=== PATIENT | female | born 1935 | race Asian ===

== ENCOUNTER 2016-12-13 21:00 | Inpatient (IN) | payer MEDICARE, OTHER ==
[~2016-12-13] VITALS: Ht 154.9 cm; Wt 60.4 kg
[~2016-12-13 21:00] MED LIST: ASPI81 PO; ATOR20TA86 GT; BUPR75 GT; BUSP10TA23 GT; DONE10TA GT; ESOM20CA31 PO; FURO20 PO; GINK60TA7 GT; LISI-660 PO; LORA0.5T2 PO; MEMA10TA11 PO; METO5TAB95 PO; PHENL GT; SINE25100 GT; TRAZ150 GT
[2016-12-13 21:57] LABS: BASOPHILS % (AUTO) 0.7 % (0.0-2.0); EOSINOPHILS % (AUTO) 0.4 % (1.0-6.0); HEMATOCRIT 41.4 % (36-46); HEMOGLOBIN 13.5 g/dL (12.0-16.0); LYMPHOCYTES # (AUTO) 2.8 K/uL (1.0-4.8); LYMPHOCYTES % (AUTO) 24.1 % (22.0-44.0); MEAN CORPUSCULAR HEMOGLOBIN 31.7 pg (26.0-34.0); MEAN CORPUSCULAR HGB CONC 32.6 G/dL (31.0-37.0); MEAN CORPUSCULAR VOLUME 97 fL (80-100); MONOCYTES # (AUTO) 0.8 K/uL (0.1-1.0); MONOCYTES % (AUTO) 6.5 % (2.0-9.0); NEUTROPHILS % (AUTO) 68.3 % (40.0-70.0); PLATELET COUNT (AUTO) 264 K/uL (150-450); RED BLOOD CELL COUNT(AUTO) 4.25 MIL/uL (4.00-5.20); WHITE BLOOD COUNT (AUTO) 11.8 K/uL (4.5-11.0)
[2016-12-13 22:03] LABS: APPEARANCE,URINE TURBID (CLEAR); GLUCOSE, URINE (UA) NEGATIVE (NEGATIVE); KETONES,URINE NEGATIVE (NEGATIVE); LEUKOCYTE ESTERASE ,URINE LARGE (NEGATIVE); OCCULT BLOOD,URINE SMALL (NEGATIVE); PROTEIN,URINE SEE CONFIRM (NEGATIVE)
[2016-12-13 22:04] LABS: CALCIUM, TOTAL 8.4 mg/dL (8.8-10.5); CREATININE 1.15 mg/dL (0.60-1.30)
[2016-12-13 22:09] LABS: ALBUMIN 2.9 g/dL (3.4-5.0); BILIRUBIN,TOTAL 0.2 mg/dL (0.1-1.0); TOTAL PROTEIN, SERUM 9.1 g/dL (6.4-8.2)
[2016-12-13 22:14] LABS: SQUAMOUS EPITHELIAL CELL,UR Few /LPF (None Seen); WBC,URINE 51-100 /HPF (0-5)
[2016-12-13 22:18] LABS: LACTIC ACID 1.8 mmol/L (0.4-2.0)
[2016-12-13] MEDS ORDERED: ALBUTEROL SULFATE 2.5 MG/0.5 ML NEB SOLUTION NEB PRN (22:30)
[2016-12-13] MEDS ORDERED: ACETAMINOPHEN 325 MG TABLET PO PRN (22:30)
[2016-12-13] MEDS ORDERED: MAGNESIUM HYDROXIDE SUSPENSION 30 ML UDCUP PO PRN (22:30)
[2016-12-13] MEDS ORDERED: DEXTROSE 50%-WATER 25 GM/50 ML SYRINGE IVP PRN (22:30)
[2016-12-13] MEDS ORDERED: LORazepam 2 MG/ML VIAL IVP PRN (22:30)
[2016-12-13] MEDS ORDERED: SODIUM CHLORIDE 0.9% 1,000 ML IV ONE (22:30)
[2016-12-13] MEDS: PHENYTOIN 100 MG/4 ML SUSPENSION UDCUP PEG SCH (22:56)
[2016-12-13] MEDS: CefTRIAXone 1 GM/DEXTROSE 50 ML IV SCH (22:56)
[2016-12-13] MEDS ORDERED: CefTRIAXone 1 GM/DEXTROSE 50 ML IV SCH (23:00)
[2016-12-13] MEDS: HEPARIN SODIUM,PORCINE 5,000 UNITS/ML VIAL SQ SCH (23:10)
[2016-12-14 06:31] LABS: GLUCOSE,POINT OF CARE 119 MG/DL (70-110)
[2016-12-14 07:28] LABS: BASOPHILS # (AUTO) 0.06 K/uL (0.00-0.20); BASOPHILS % (AUTO) 0.7 % (0.0-2.0); EOSINOPHILS # (AUTO) 0.07 K/uL (0.00-0.70); EOSINOPHILS % (AUTO) 0.75 % (1.0-6.0); HEMATOCRIT 38.2 % (36-46); HEMOGLOBIN 12.8 g/dL (12.0-16.0); LYMPHOCYTES # (AUTO) 3.2 K/uL (1.0-4.8); LYMPHOCYTES % (AUTO) 35.9 % (22.0-44.0); MEAN CORPUSCULAR HEMOGLOBIN 32.7 pg (26.0-34.0); MEAN CORPUSCULAR HGB CONC 33.5 G/dL (31.0-37.0); MEAN CORPUSCULAR VOLUME 98 fL (80-100); MONOCYTES # (AUTO) 0.6 K/uL (0.1-1.0); NEUTROPHILS # (AUTO) 4.9 K/uL (1.8-7.7); NEUTROPHILS % (AUTO) 55.6 % (40.0-70.0); PLATELET COUNT (AUTO) 219 K/uL (150-450); RED BLOOD CELL COUNT(AUTO) 3.91 MIL/uL (4.00-5.20); RED CELL DISTRIBUTION WIDTH 13.5 % (11.5-14.5); WHITE BLOOD COUNT (AUTO) 8.8 K/uL (4.5-11.0)
[2016-12-14 07:37] LABS: CALCIUM, TOTAL 7.9 mg/dL (8.8-10.5); CREATININE 0.94 mg/dL (0.60-1.30)
[2016-12-14] MEDS ORDERED: MAGNESIUM HYDROXIDE SUSPENSION 30 ML UDCUP PEG PRN (07:45)
[2016-12-14] MEDS: HEPARIN SODIUM,PORCINE 5,000 UNITS/ML VIAL SQ SCH ×2 (08:00→18:31)
[2016-12-14] MEDS: ASPIRIN 81 MG CHEWABLE TABLET PEG SCH (10:14)
[2016-12-14] MEDS: ATORVASTATIN CALCIUM 20 MG TABLET PEG SCH (10:14)
[2016-12-14] MEDS: DOCUSATE SODIUM 100 MG CAPSULE PEG SCH ×2 (10:14→22:39)
[2016-12-14] MEDS: PANTOPRAZOLE SODIUM 40 MG/VIAL IVP SCH (10:14)
[2016-12-14 13:16] LABS: GLUCOSE,POINT OF CARE 131 MG/DL (70-110)
[2016-12-14 17:30] VITALS: BP 136/95
[2016-12-14 19:53] VITALS: BP 144/77
[2016-12-14] MEDS: DEXTROSE 5%-0.45% SODIUM CHL 1,000 ML IV SCH (21:47)
[2016-12-14] MEDS: PHENYTOIN 100 MG/4 ML SUSPENSION UDCUP PEG SCH (22:39)
[2016-12-14 23:57] VITALS: BP 138/95
[2016-12-15] MEDS: CefTRIAXone 1 GM/DEXTROSE 50 ML IV SCH ×2 (00:40→23:15)
[2016-12-15] MEDS: HEPARIN SODIUM,PORCINE 5,000 UNITS/ML VIAL SQ SCH ×4 (00:40→23:15)
[2016-12-15 05:11] VITALS: BP 133/86
[2016-12-15 07:32] VITALS: BP 115/73
[2016-12-15] MEDS: DOCUSATE SODIUM 100 MG CAPSULE PEG SCH ×2 (09:48→21:00)
[2016-12-15] MEDS: ATORVASTATIN CALCIUM 20 MG TABLET PEG SCH (09:48)
[2016-12-15] MEDS: ASPIRIN 81 MG CHEWABLE TABLET PEG SCH (09:48)
[2016-12-15] MEDS: PANTOPRAZOLE SODIUM 40 MG/VIAL IVP SCH (09:48)
[2016-12-15] MEDS: ACETAMINOPHEN 325 MG TABLET PEG PRN ×2 (10:08→16:46)
[2016-12-15 11:23] VITALS: BP 103/74
[2016-12-15 12:27] LABS: GLUCOSE,POINT OF CARE 164 MG/DL (70-110)
[2016-12-15 12:27] LABS: GLUCOSE,POINT OF CARE 159 MG/DL (70-110)
[2016-12-15 15:12] VITALS: BP 130/57
[2016-12-15] MEDS: DEXTROSE 5%-0.45% SODIUM CHL 1,000 ML IV SCH (16:50)
[2016-12-15 17:56] LABS: GLUCOSE COMMENT 1 Received Meds; GLUCOSE,POINT OF CARE 205 MG/DL (70-110)
[2016-12-15] MEDS: INSULIN REGULAR, HUMAN 100 UNITS/ML SQ PRN ×2 (18:10→21:48)
[2016-12-15 19:58] VITALS: BP 147/82
[2016-12-15] MEDS: PHENYTOIN 100 MG/4 ML SUSPENSION UDCUP PEG SCH (21:49)
[2016-12-16 00:18] VITALS: BP 144/68
[2016-12-16 05:23] VITALS: BP 155/96
[2016-12-16] MEDS: INSULIN REGULAR, HUMAN 100 UNITS/ML SQ PRN ×3 (06:15→18:14)
[2016-12-16 06:29] LABS: BASOPHILS % (AUTO) 0.4 % (0.0-2.0); EOSINOPHILS % (AUTO) 2.4 % (1.0-6.0); HEMATOCRIT 36.8 % (36-46); HEMOGLOBIN 11.9 g/dL (12.0-16.0); LYMPHOCYTES # (AUTO) 2.7 K/uL (1.0-4.8); LYMPHOCYTES % (AUTO) 31.1 % (22.0-44.0); MEAN CORPUSCULAR HEMOGLOBIN 31.8 pg (26.0-34.0); MEAN CORPUSCULAR HGB CONC 32.4 G/dL (31.0-37.0); MEAN CORPUSCULAR VOLUME 98 fL (80-100); MONOCYTES # (AUTO) 0.6 K/uL (0.1-1.0); MONOCYTES % (AUTO) 6.7 % (2.0-9.0); NEUTROPHILS # (AUTO) 5.1 K/uL (1.8-7.7); NEUTROPHILS % (AUTO) 59.4 % (40.0-70.0); PLATELET COUNT (AUTO) 183 K/uL (150-450); RED BLOOD CELL COUNT(AUTO) 3.74 MIL/uL (4.00-5.20); RED CELL DISTRIBUTION WIDTH 12.7 % (11.5-14.5); WHITE BLOOD COUNT (AUTO) 8.6 K/uL (4.5-11.0)
[2016-12-16 06:53] LABS: ANION GAP 8 mmol/L (8-16); CALCIUM, TOTAL 7.4 mg/dL (8.8-10.5); CARBON DIOXIDE 27 mmol/L (22-29); CHLORIDE 107 mmol/L (98-107); CREATININE 0.75 mg/dL (0.60-1.30); GLOMERULAR FILTR. RATE CALC > 60 mL/min (>60); POTASSIUM 3.6 mmol/L (3.5-5.1); SODIUM SERUM 142 mmol/L (136-145); UREA NITROGEN, BLOOD 35 mg/dL (7-18)
[2016-12-16 07:14] VITALS: BP 159/89
[2016-12-16] MEDS: PANTOPRAZOLE SODIUM 40 MG/VIAL IVP SCH (08:00)
[2016-12-16] MEDS: DOCUSATE SODIUM 100 MG CAPSULE PEG SCH ×2 (08:01→21:00)
[2016-12-16] MEDS: ASPIRIN 81 MG CHEWABLE TABLET PEG SCH (08:01)
[2016-12-16] MEDS: ATORVASTATIN CALCIUM 20 MG TABLET PEG SCH (08:01)
[2016-12-16] MEDS: HEPARIN SODIUM,PORCINE 5,000 UNITS/ML VIAL SQ SCH ×3 (08:01→23:43)
[2016-12-16 11:23] VITALS: BP 162/91
[2016-12-16] MEDS: DEXTROSE 5%-0.45% SODIUM CHL 1,000 ML IV SCH (11:36)
[2016-12-16 12:02] LABS: GLUCOSE COMMENT 1 Received Meds; GLUCOSE,POINT OF CARE 184 MG/DL (70-110)
[2016-12-16] MEDS ORDERED: VANCOMYCIN HCL 1 GM/D5% WATER 200 ML IV ONE (13:00)
[2016-12-16 15:27] VITALS: BP 143/80
[2016-12-16 19:49] VITALS: BP 153/83
[2016-12-16] MEDS: VANCOMYCIN HCL 1 GM/D5% WATER 200 ML IV SCH (20:05)
[2016-12-16] MEDS: PHENYTOIN 100 MG/4 ML SUSPENSION UDCUP PEG SCH (21:11)
[2016-12-17] VITALS (7 sets, daily range): BP systolic 118–168; BP diastolic 76–95
[2016-12-17] MEDS ORDERED: 0.9% SODIUM CHLORIDE 10 ML SYRINGE IVP PRN (03:00)
[2016-12-17] MEDS: INSULIN REGULAR, HUMAN 100 UNITS/ML SQ PRN ×4 (06:50→22:06)
[2016-12-17 06:56] LABS: GLUCOSE COMMENT 1 Received Meds; GLUCOSE,POINT OF CARE 279 MG/DL (70-110)
[2016-12-17 07:26] LABS: ANION GAP 10 mmol/L (8-16); CALCIUM, TOTAL 7.3 mg/dL (8.8-10.5); CARBON DIOXIDE 24 mmol/L (22-29); CHLORIDE 101 mmol/L (98-107); CREATININE 0.76 mg/dL (0.60-1.30); GLOMERULAR FILTR. RATE CALC > 60 mL/min (>60); POTASSIUM 4.7 mmol/L (3.5-5.1); SODIUM SERUM 135 mmol/L (136-145); UREA NITROGEN, BLOOD 30 mg/dL (7-18)
[2016-12-17 07:46] LABS: BASOPHILS % (AUTO) 0.1 % (0.0-2.0); EOSINOPHILS % (AUTO) 0.7 % (1.0-6.0); HEMATOCRIT 34.6 % (36-46); HEMOGLOBIN 11.5 g/dL (12.0-16.0); LYMPHOCYTES # (AUTO) 0.7 K/uL (1.0-4.8); LYMPHOCYTES % (AUTO) 5.9 % (22.0-44.0); MEAN CORPUSCULAR HEMOGLOBIN 31.6 pg (26.0-34.0); MEAN CORPUSCULAR HGB CONC 33.2 G/dL (31.0-37.0); MEAN CORPUSCULAR VOLUME 95 fL (80-100); MONOCYTES # (AUTO) 0.4 K/uL (0.1-1.0); MONOCYTES % (AUTO) 3.8 % (2.0-9.0); NEUTROPHILS # (AUTO) 10.3 K/uL (1.8-7.7); PLATELET COUNT (AUTO) 153 K/uL (150-450); RED BLOOD CELL COUNT(AUTO) 3.64 MIL/uL (4.00-5.20); RED CELL DISTRIBUTION WIDTH 12.5 % (11.5-14.5); WHITE BLOOD COUNT (AUTO) 11.5 K/uL (4.5-11.0)
[2016-12-17 07:49] LABS: NEUTROPHILS % (AUTO) 89.5 % (40.0-70.0)
[2016-12-17] MEDS: ASPIRIN 81 MG CHEWABLE TABLET PEG SCH (09:18)
[2016-12-17] MEDS: VANCOMYCIN HCL 1 GM/D5% WATER 200 ML IV SCH ×2 (09:18→21:56)
[2016-12-17] MEDS: HEPARIN SODIUM,PORCINE 5,000 UNITS/ML VIAL SQ SCH ×2 (09:18→17:12)
[2016-12-17] MEDS: ATORVASTATIN CALCIUM 20 MG TABLET PEG SCH (09:18)
[2016-12-17] MEDS: DEXTROSE 5%-0.45% SODIUM CHL 1,000 ML IV SCH (09:18)
[2016-12-17] MEDS: DOCUSATE SODIUM 100 MG CAPSULE PEG SCH ×3 (09:19→21:56)
[2016-12-17] MEDS: PANTOPRAZOLE SODIUM 40 MG/VIAL IVP SCH (09:20)
[2016-12-17] MEDS: PHENYTOIN 100 MG/4 ML SUSPENSION UDCUP PEG SCH (21:56)
[2016-12-18] MEDS: HEPARIN SODIUM,PORCINE 5,000 UNITS/ML VIAL SQ SCH ×3 (00:20→16:21)
[2016-12-18 04:29] VITALS: BP 152/82
[2016-12-18] MEDS: DEXTROSE 5%-0.45% SODIUM CHL 1,000 ML IV SCH (04:31)
[2016-12-18] MEDS: INSULIN REGULAR, HUMAN 100 UNITS/ML SQ PRN ×2 (06:29→12:34)
[2016-12-18 07:35] VITALS: BP 160/97
[2016-12-18] MEDS: VANCOMYCIN HCL 1 GM/D5% WATER 200 ML IV SCH (08:03)
[2016-12-18] MEDS: PANTOPRAZOLE SODIUM 40 MG/VIAL IVP SCH (08:03)
[2016-12-18] MEDS: DOCUSATE SODIUM 100 MG CAPSULE PEG SCH (08:04)
[2016-12-18] MEDS: ATORVASTATIN CALCIUM 20 MG TABLET PEG SCH (08:04)
[2016-12-18] MEDS: ASPIRIN 81 MG CHEWABLE TABLET PEG SCH (08:04)
[2016-12-18 09:13] LABS: ANION GAP 9 mmol/L (8-16); CALCIUM, TOTAL 7.6 mg/dL (8.8-10.5); CARBON DIOXIDE 23 mmol/L (22-29); CHLORIDE 101 mmol/L (98-107); CREATININE 0.66 mg/dL (0.60-1.30); GLOMERULAR FILTR. RATE CALC > 60 mL/min (>60); SODIUM SERUM 133 mmol/L (136-145); UREA NITROGEN, BLOOD 28 mg/dL (7-18)
[2016-12-18 12:05] VITALS: BP 109/79
[2016-12-18 15:40] VITALS: BP 147/94
[2016-12-18] MEDS ORDERED: NITR50CA PEG (15:51)
[2016-12-18] MEDS ORDERED: NITROFURANTOIN MACROCRYSTAL 50 MG CAPSULE PO SCH (16:00)
[2016-12-18] MEDS ORDERED: PANT40TA25 PEG (16:03)
[2016-12-18] MEDS ORDERED: MOM30 PEG (16:04)
[2016-12-18] MEDS ORDERED: INSREG SQ (16:07)
[2016-12-18] MEDS ORDERED: AUD NEB (16:09)
[2016-12-18] MEDS ORDERED: VANCOMYCIN HCL 750 MG in DEXTROSE 5%-WATER 150 ML IV SCH (20:00)
[2016-12-26 06:54] LABS: GLUCOSE,POINT OF CARE 139 MG/DL (70-110)
[2016-12-26 06:54] LABS: GLUCOSE,POINT OF CARE 174 MG/DL (70-110)
[2016-12-26 06:54] LABS: GLUCOSE COMMENT 1 Received Meds; GLUCOSE,POINT OF CARE 227 MG/DL (70-110)
[2016-12-26 06:54] LABS: GLUCOSE COMMENT 1 Received Meds; GLUCOSE,POINT OF CARE 230 MG/DL (70-110)
[2016-12-26 06:54] LABS: GLUCOSE COMMENT 1 Received Meds; GLUCOSE,POINT OF CARE 153 MG/DL (70-110)
[2016-12-26 06:54] LABS: GLUCOSE COMMENT 1 Received Meds; GLUCOSE,POINT OF CARE 209 MG/DL (70-110)
[2016-12-26 06:57] LABS: GLUCOSE,POINT OF CARE 140 MG/DL (70-110)
[2016-12-26 06:58] LABS: GLUCOSE COMMENT 1 Received Meds; GLUCOSE,POINT OF CARE 217 MG/DL (70-110)
[2016-12-26 06:58] LABS: GLUCOSE COMMENT 1 Received Meds; GLUCOSE,POINT OF CARE 163 MG/DL (70-110)
[2016-12-26 06:58] LABS: GLUCOSE COMMENT 1 Received Meds; GLUCOSE,POINT OF CARE 157 MG/DL (70-110)
[2016-12-26 06:58] LABS: GLUCOSE COMMENT 1 Received Meds; GLUCOSE,POINT OF CARE 207 MG/DL (70-110)
== END 2016-12-18 16:50 | DRG 871 ==
LOC: EMS 21:07 → 5S 12-14 17:10 → EMS 12-14 17:50
PROVIDERS: ADMIT Internal Medicine; ATTEND Internal Medicine
DX: A41.81 Sepsis due to Enterococcus (principal); E43 Unspecified severe protein-calorie malnutrition; N39.0 Urinary tract infection, site not specified; I69.354 Hemiplegia and hemiparesis following cerebral infarction affecting left non-dominant side; F02.80 Dementia in other diseases classified elsewhere, unspecified severity, without behavioral disturbance, psychotic disturbance, mood disturbance, and anxiety; R13.10 Dysphagia, unspecified; G40.909 Epilepsy, unspecified, not intractable, without status epilepticus; L89.159 Pressure ulcer of sacral region, unspecified stage; Z16.24 Resistance to multiple antibiotics; R62.7 Adult failure to thrive; E11.65 Type 2 diabetes mellitus with hyperglycemia; E78.00 Pure hypercholesterolemia, unspecified; E86.0 Dehydration; F01.50 Vascular dementia, unspecified severity, without behavioral disturbance, psychotic disturbance, mood disturbance, and anxiety; G20 Parkinson's disease; G30.9 Alzheimer's disease, unspecified; H54.41 Blindness, right eye, normal vision left eye; I10 Essential (primary) hypertension; Z74.01 Bed confinement status; Z79.82 Long term (current) use of aspirin; Z68.25 Body mass index [BMI] 25.0-25.9, adult
CPT/HCPCS: 82962; 83605; 87040; 87086; 93005; 96361; 96374; 99285; C9113; J0696; J1644; J3370; J7030; J7060

== ENCOUNTER 2017-01-11 13:59 | Inpatient (IN) | payer MEDICARE, OTHER ==
[~2017-01-11] VITALS: Ht 154.9 cm; Wt 64.7 kg
[~2017-01-11 13:59] MED LIST changes: +AUD NEB; -BUPR75 GT; -BUSP10TA23 GT; -DONE10TA GT; -ESOM20CA31 PO; -FURO20 PO; -GINK60TA7 GT; +INSREG SQ; -LISI-660 PO; -LORA0.5T2 PO; -MEMA10TA11 PO; -METO5TAB95 PO; +MOM30 PEG; +NITR50CA PEG; +PANT40TA25 PEG; -SINE25100 GT; -TRAZ150 GT
[2017-01-11] MEDS ORDERED: GINK40TA2 PEG (14:36)
[2017-01-11] MEDS ORDERED: DONE10TA PEG (14:36)
[2017-01-11] MEDS ORDERED: SITA50 PEG (14:36)
[2017-01-11] MEDS ORDERED: LISI-660 PEG (14:36)
[2017-01-11] MEDS ORDERED: MEMA10TA11 PEG (14:36)
[2017-01-11] MEDS ORDERED: BUPR75 PEG (14:36)
[2017-01-11] MEDS ORDERED: TRAZ-144 PEG (14:36)
[2017-01-11] MEDS ORDERED: ESOM20CA31 PEG (14:36)
[2017-01-11] MEDS ORDERED: LORA0.5T2 PEG (14:36)
[2017-01-11] MEDS ORDERED: CARB25TA3 PEG (14:36)
[2017-01-11] MEDS ORDERED: BUSP10TA23 PEG (14:36)
[2017-01-11 15:20] LABS: BASOPHILS % (AUTO) 0.5 % (0.0-2.0); EOSINOPHILS % (AUTO) 0.3 % (1.0-6.0); HEMATOCRIT 39.1 % (36-46); HEMOGLOBIN 12.7 g/dL (12.0-16.0); LYMPHOCYTES # (AUTO) 2.4 K/uL (1.0-4.8); MEAN CORPUSCULAR HEMOGLOBIN 31.8 pg (26.0-34.0); MEAN CORPUSCULAR HGB CONC 32.5 G/dL (31.0-37.0); MEAN CORPUSCULAR VOLUME 98 fL (80-100); MONOCYTES # (AUTO) 0.7 K/uL (0.1-1.0); NEUTROPHILS # (AUTO) 7.1 K/uL (1.8-7.7); NEUTROPHILS % (AUTO) 69.2 % (40.0-70.0); PLATELET COUNT (AUTO) 303 K/uL (150-450); RED BLOOD CELL COUNT(AUTO) 3.98 MIL/uL (4.00-5.20); RED CELL DISTRIBUTION WIDTH 14.1 % (11.5-14.5); WHITE BLOOD COUNT (AUTO) 10.2 K/uL (4.5-11.0)
[2017-01-11 15:29] LABS: PROTHROMBIN TIME 10.4 SEC (9.4-11.6)
[2017-01-11 15:31] LABS: ANION GAP 8 mmol/L (8-16); CALCIUM, TOTAL 8.5 mg/dL (8.8-10.5); CARBON DIOXIDE 30 mmol/L (22-29); CHLORIDE 107 mmol/L (98-107); CREATININE 0.93 mg/dL (0.60-1.30); GLOMERULAR FILTR. RATE CALC 58 mL/min (>60); POTASSIUM 4.4 mmol/L (3.5-5.1); SODIUM SERUM 145 mmol/L (136-145); UREA NITROGEN, BLOOD 51 mg/dL (7-18)
[2017-01-11 15:44] LABS: LACTIC ACID 1.6 mmol/L (0.4-2.0)
[2017-01-11 15:46] LABS: INFLUENZA TYPE B NEGATIVE FOR TYPE B (NEGATIVE)
[2017-01-11 15:56] LABS: ALANINE AMINOTRANSFERASE 30 U/L (12-78); ALBUMIN 2.7 g/dL (3.4-5.0); ASPARTATE AMINOTRANSFERASE 58 U/L (15-37); BILIRUBIN,TOTAL 0.2 mg/dL (0.1-1.0); CREATINE KINASE, TOTAL 87 U/L (26-192); TOTAL PROTEIN, SERUM 8.9 g/dL (6.4-8.2)
[2017-01-11 15:58] LABS: CREATINE KINASE MB < 0.5 ng/mL (0-5)
[2017-01-11] MEDS ORDERED: ACETAMINOPHEN 500 MG TABLET GT ONE (16:00)
[2017-01-11 16:07] LABS: B-TYPE NATRIURETIC PEPTIDE 24 pg/mL (0-100)
[2017-01-11] MEDS ORDERED: SODIUM CHLORIDE 0.9% 500 ML IV ONE (16:30)
[2017-01-11 16:42] LABS: PROCALCITONIN (PCT) 0.12 ng/mL (<0.50)
[2017-01-11 16:45] LABS: APPEARANCE,URINE CLEAR (CLEAR); GLUCOSE, URINE (UA) NEGATIVE (NEGATIVE); KETONES,URINE NEGATIVE (NEGATIVE); LEUKOCYTE ESTERASE ,URINE NEGATIVE (NEGATIVE); OCCULT BLOOD,URINE NEGATIVE (NEGATIVE); PH,URINE 7.5 (5.0-8.0); PROTEIN,URINE POS 1+ (NEGATIVE)
[2017-01-11 16:48] LABS: RBC,URINE None Seen /HPF (0-2); SQUAMOUS EPITHELIAL CELL,UR Few /LPF (None Seen); WBC,URINE 0-2 /HPF (0-5)
[2017-01-11] MEDS ORDERED: CefTRIAXone 1 GM/DEXTROSE 50 ML IV ONE (17:00)
[2017-01-11] MEDS ORDERED: 0.9% SODIUM CHLORIDE 10 ML SYRINGE IVP PRN (18:15)
[2017-01-11] MEDS ORDERED: ONDANSETRON HCL 4 MG/2 ML VIAL IVP PRN (18:15)
[2017-01-11] MEDS ORDERED: ACETAMINOPHEN 325 MG TABLET PO PRN (18:15)
[2017-01-11] MEDS ORDERED: ERYTHROMYCIN 0.5% 3.5 GM TUBE OPHTHALMIC OINTMENT OD SCH (21:00)
[2017-01-11 22:00] VITALS: BP 136/90
[2017-01-11 22:11] VITALS: BP 136/90
[2017-01-12 00:18] VITALS: BP 117/72
[2017-01-12 04:12] VITALS: BP 150/89
[2017-01-12] MEDS ORDERED: DEXTROSE 50%-WATER 25 GM/50 ML SYRINGE IVP PRN (06:45)
[2017-01-12 07:22] LABS: HEMATOCRIT 35.8 % (36-46); HEMOGLOBIN 11.9 g/dL (12.0-16.0); MEAN CORPUSCULAR HEMOGLOBIN 32.6 pg (26.0-34.0); MEAN CORPUSCULAR HGB CONC 33.2 G/dL (31.0-37.0); MEAN CORPUSCULAR VOLUME 98 fL (80-100); RED BLOOD CELL COUNT(AUTO) 3.64 MIL/uL (4.00-5.20); RED CELL DISTRIBUTION WIDTH 14.3 % (11.5-14.5)
[2017-01-12 07:27] LABS: ALANINE AMINOTRANSFERASE 57 U/L (12-78); ALBUMIN 2.5 g/dL (3.4-5.0); ANION GAP 11 mmol/L (8-16); ASPARTATE AMINOTRANSFERASE 47 U/L (15-37); BILIRUBIN,TOTAL 0.4 mg/dL (0.1-1.0); CALCIUM, TOTAL 8.5 mg/dL (8.8-10.5); CARBON DIOXIDE 27 mmol/L (22-29); CHLORIDE 108 mmol/L (98-107); CREATININE 0.77 mg/dL (0.60-1.30); GLOMERULAR FILTR. RATE CALC > 60 mL/min (>60); POTASSIUM 4.5 mmol/L (3.5-5.1); SODIUM SERUM 146 mmol/L (136-145); TOTAL PROTEIN, SERUM 8.3 g/dL (6.4-8.2); UREA NITROGEN, BLOOD 50 mg/dL (7-18)
[2017-01-12 07:32] VITALS: BP 138/77
[2017-01-12 08:08] LABS: PLATELET COUNT (AUTO) 272 K/uL (150-450)
[2017-01-12 08:10] LABS: BAND NEUTROPHILS % (MANUAL) 8 % (1-5); BASOPHILS % (MANUAL) 1 % (0-2); LYMPHOCYTES % (MANUAL) 17 % (22-44); TOTAL CELLS COUNTED 100
[2017-01-12] MEDS: LISINOPRIL 5 MG TABLET PEG SCH (08:42)
[2017-01-12] MEDS: MEMANTINE HCL 10 MG TABLET PEG SCH ×2 (08:43→21:03)
[2017-01-12] MEDS: BuPROPion HCL 75 MG TABLET PEG SCH (08:43)
[2017-01-12] MEDS: DONEPEZIL HCL 10 MG TABLET PEG SCH (08:43)
[2017-01-12] MEDS: ASPIRIN 81 MG CHEWABLE TABLET PEG SCH (08:43)
[2017-01-12] MEDS: BusPIRone HCL 10 MG TABLET PEG SCH ×2 (08:43→21:03)
[2017-01-12] MEDS: ATORVASTATIN CALCIUM 20 MG TABLET PEG SCH (08:43)
[2017-01-12 11:31] VITALS: BP 150/73
[2017-01-12] MEDS ORDERED: PHENL GT (13:37)
[2017-01-12] MEDS ORDERED: SODIUM CHLORIDE 0.9% 500 ML IV ONE (16:14)
[2017-01-12] MEDS: CefTRIAXone 1 GM/DEXTROSE 50 ML IV SCH (16:46)
[2017-01-12] MEDS ORDERED: SODIUM CHLORIDE 0.9% 100 ML ONE (17:52)
[2017-01-12] MEDS ORDERED: BARIUM SULFATE 0.1% SUSPENSION 450 ML BOTTLE ONE (17:52)
[2017-01-12] MEDS ORDERED: IOVERSOL 350 MG/ML 100 ML VIAL ONE (17:52)
[2017-01-12 19:29] VITALS: BP 124/71
[2017-01-12] MEDS ORDERED: PHENYTOIN 100 MG/4 ML SUSPENSION UDCUP PO SCH (21:00)
[2017-01-12] MEDS: TraZODone HCL 50 MG TABLET PEG SCH (21:03)
[2017-01-12] MEDS: SODIUM CHLORIDE 0.9% 1,000 ML IV SCH (21:03)
[2017-01-12] MEDS: LORazepam 0.5 MG TABLET PEG SCH (21:03)
[2017-01-12 23:52] VITALS: BP 98/59
[2017-01-13 05:12] VITALS: BP 129/71
[2017-01-13] MEDS: INSULIN ASPART 100 UNITS/ML SQ PRN ×2 (05:42→18:09)
[2017-01-13] MEDS ORDERED: 0.9% SODIUM CHLORIDE 10 ML SYRINGE IVP PRN (06:15)
[2017-01-13 06:32] LABS: BASOPHILS % (AUTO) 0.3 % (0.0-2.0); EOSINOPHILS % (AUTO) 3.1 % (1.0-6.0); HEMATOCRIT 32.2 % (36-46); HEMOGLOBIN 10.9 g/dL (12.0-16.0); LYMPHOCYTES # (AUTO) 1.7 K/uL (1.0-4.8); LYMPHOCYTES % (AUTO) 21.4 % (22.0-44.0); MEAN CORPUSCULAR HEMOGLOBIN 32.9 pg (26.0-34.0); MEAN CORPUSCULAR HGB CONC 33.7 G/dL (31.0-37.0); MEAN CORPUSCULAR VOLUME 98 fL (80-100); MONOCYTES # (AUTO) 0.5 K/uL (0.1-1.0); MONOCYTES % (AUTO) 5.7 % (2.0-9.0); NEUTROPHILS # (AUTO) 5.6 K/uL (1.8-7.7); NEUTROPHILS % (AUTO) 69.5 % (40.0-70.0); PLATELET COUNT (AUTO) 250 K/uL (150-450); RED CELL DISTRIBUTION WIDTH 13.9 % (11.5-14.5)
[2017-01-13 06:51] LABS: ANION GAP 7 mmol/L (8-16); CALCIUM, TOTAL 8.1 mg/dL (8.8-10.5); CARBON DIOXIDE 26 mmol/L (22-29); CHLORIDE 108 mmol/L (98-107); CREATININE 0.77 mg/dL (0.60-1.30); GLOMERULAR FILTR. RATE CALC > 60 mL/min (>60); POTASSIUM 3.9 mmol/L (3.5-5.1); SODIUM SERUM 141 mmol/L (136-145); UREA NITROGEN, BLOOD 41 mg/dL (7-18)
[2017-01-13 07:15] VITALS: BP 125/74
[2017-01-13] MEDS: BusPIRone HCL 10 MG TABLET PEG SCH ×2 (09:35→21:00)
[2017-01-13] MEDS: ATORVASTATIN CALCIUM 20 MG TABLET PEG SCH (09:35)
[2017-01-13] MEDS: MEMANTINE HCL 10 MG TABLET PEG SCH ×2 (09:36→21:00)
[2017-01-13] MEDS: LISINOPRIL 5 MG TABLET PEG SCH (09:36)
[2017-01-13] MEDS: BuPROPion HCL 75 MG TABLET PEG SCH (09:37)
[2017-01-13] MEDS: MULTIVITAMINS WITH MINERALS, THERAPEUTIC 15 ML UDCUP PEG SCH (09:37)
[2017-01-13] MEDS: SODIUM CHLORIDE 0.9% 1,000 ML IV SCH (09:38)
[2017-01-13] MEDS: DONEPEZIL HCL 10 MG TABLET PEG SCH (09:39)
[2017-01-13] MEDS: ASPIRIN 81 MG CHEWABLE TABLET PEG SCH (09:39)
[2017-01-13 10:59] VITALS: BP 120/63
[2017-01-13] MEDS ORDERED: BUPR150SR PO (11:34)
[2017-01-13] MEDS ORDERED: CARB-101 PO (11:34)
[2017-01-13] MEDS ORDERED: VANCOMYCIN HCL 1 GM/D5% WATER 200 ML IV ONE (12:00)
[2017-01-13 15:31] VITALS: BP 122/62
[2017-01-13] MEDS: CefTRIAXone 1 GM/DEXTROSE 50 ML IV SCH (17:40)
[2017-01-13 19:37] VITALS: BP 135/66
[2017-01-13] MEDS: TraZODone HCL 50 MG TABLET PEG SCH (21:00)
[2017-01-13] MEDS: LORazepam 0.5 MG TABLET PEG SCH (21:00)
[2017-01-13] MEDS: PHENYTOIN 100 MG/4 ML SUSPENSION UDCUP PEG SCH (21:55)
[2017-01-14] VITALS (7 sets, daily range): BP systolic 105–143; BP diastolic 59–83
[2017-01-14 06:52] LABS: BASOPHILS % (AUTO) 0.3 % (0.0-2.0); EOSINOPHILS % (AUTO) 2.6 % (1.0-6.0); HEMATOCRIT 31.8 % (36-46); HEMOGLOBIN 10.6 g/dL (12.0-16.0); LYMPHOCYTES # (AUTO) 1.6 K/uL (1.0-4.8); LYMPHOCYTES % (AUTO) 17.1 % (22.0-44.0); MEAN CORPUSCULAR HEMOGLOBIN 32.5 pg (26.0-34.0); MEAN CORPUSCULAR HGB CONC 33.3 G/dL (31.0-37.0); MEAN CORPUSCULAR VOLUME 98 fL (80-100); MONOCYTES # (AUTO) 0.5 K/uL (0.1-1.0); MONOCYTES % (AUTO) 5.2 % (2.0-9.0); NEUTROPHILS % (AUTO) 74.8 % (40.0-70.0); PLATELET COUNT (AUTO) 225 K/uL (150-450); RED BLOOD CELL COUNT(AUTO) 3.26 MIL/uL (4.00-5.20); RED CELL DISTRIBUTION WIDTH 13.5 % (11.5-14.5); WHITE BLOOD COUNT (AUTO) 9.3 K/uL (4.5-11.0)
[2017-01-14] MEDS: INSULIN ASPART 100 UNITS/ML SQ PRN ×3 (06:54→17:47)
[2017-01-14 07:07] LABS: ANION GAP 8 mmol/L (8-16); CALCIUM, TOTAL 8.1 mg/dL (8.8-10.5); CARBON DIOXIDE 24 mmol/L (22-29); CHLORIDE 104 mmol/L (98-107); GLOMERULAR FILTR. RATE CALC > 60 mL/min (>60); POTASSIUM 3.9 mmol/L (3.5-5.1); SODIUM SERUM 136 mmol/L (136-145); UREA NITROGEN, BLOOD 30 mg/dL (7-18)
[2017-01-14] MEDS: ASPIRIN 81 MG CHEWABLE TABLET PEG SCH (09:27)
[2017-01-14] MEDS: DONEPEZIL HCL 10 MG TABLET PEG SCH (09:27)
[2017-01-14] MEDS: VANCOMYCIN HCL 500 MG in DEXTROSE 5%-WATER 100 ML IV SCH ×2 (09:27→20:07)
[2017-01-14] MEDS: LISINOPRIL 5 MG TABLET PEG SCH (09:28)
[2017-01-14] MEDS: MULTIVITAMINS WITH MINERALS, THERAPEUTIC 15 ML UDCUP PEG SCH (09:28)
[2017-01-14] MEDS: BusPIRone HCL 10 MG TABLET PEG SCH ×2 (09:28→20:08)
[2017-01-14] MEDS: BuPROPion HCL 75 MG TABLET PEG SCH (09:28)
[2017-01-14] MEDS: ATORVASTATIN CALCIUM 20 MG TABLET PEG SCH (09:28)
[2017-01-14] MEDS: MEMANTINE HCL 10 MG TABLET PEG SCH ×2 (09:28→20:08)
[2017-01-14] MEDS ORDERED: 0.9% SODIUM CHLORIDE 5 ML NEB SOLUTION NEB ONE (15:26)
[2017-01-14] MEDS ORDERED: SODIUM CHLORIDE 0.9% 250 ML IV ONE (16:44)
[2017-01-14] MEDS: MetroNIDAZOLE 500 MG/NACL 100 ML IV SCH ×2 (16:50→22:49)
[2017-01-14] MEDS: CefTRIAXone 1 GM/DEXTROSE 50 ML IV SCH (17:48)
[2017-01-14] MEDS: LORazepam 0.5 MG TABLET PEG SCH (20:08)
[2017-01-14] MEDS: TraZODone HCL 50 MG TABLET PEG SCH (20:08)
[2017-01-14] MEDS: PHENYTOIN 100 MG/4 ML SUSPENSION UDCUP PEG SCH (20:08)
[2017-01-15 04:05] VITALS: BP 105/61
[2017-01-15] MEDS: MetroNIDAZOLE 500 MG/NACL 100 ML IV SCH ×2 (06:30→15:20)
[2017-01-15 07:38] VITALS: BP 124/76
[2017-01-15 07:51] LABS: ANION GAP 10 mmol/L (8-16); CALCIUM, TOTAL 8.1 mg/dL (8.8-10.5); CARBON DIOXIDE 23 mmol/L (22-29); CHLORIDE 102 mmol/L (98-107); CREATININE 0.59 mg/dL (0.60-1.30); GLOMERULAR FILTR. RATE CALC > 60 mL/min (>60); POTASSIUM 5.2 mmol/L (3.5-5.1); SODIUM SERUM 135 mmol/L (136-145); UREA NITROGEN, BLOOD 23 mg/dL (7-18)
[2017-01-15] MEDS: VANCOMYCIN HCL 500 MG in DEXTROSE 5%-WATER 100 ML IV SCH ×2 (08:53→21:16)
[2017-01-15] MEDS: DONEPEZIL HCL 10 MG TABLET PEG SCH (08:54)
[2017-01-15] MEDS: BuPROPion HCL 75 MG TABLET PEG SCH (08:55)
[2017-01-15] MEDS: MEMANTINE HCL 10 MG TABLET PEG SCH ×2 (08:55→21:02)
[2017-01-15] MEDS: ATORVASTATIN CALCIUM 20 MG TABLET PEG SCH (08:55)
[2017-01-15] MEDS: ASPIRIN 81 MG CHEWABLE TABLET PEG SCH (08:56)
[2017-01-15] MEDS: LISINOPRIL 5 MG TABLET PEG SCH (08:56)
[2017-01-15] MEDS: BusPIRone HCL 10 MG TABLET PEG SCH ×2 (08:56→21:03)
[2017-01-15] MEDS: MULTIVITAMINS WITH MINERALS, THERAPEUTIC 15 ML UDCUP PEG SCH (08:56)
[2017-01-15 09:08] LABS: BASOPHILS % (AUTO) 0.3 % (0.0-2.0); EOSINOPHILS % (AUTO) 2.3 % (1.0-6.0); HEMATOCRIT 31.1 % (36-46); HEMOGLOBIN 10.3 g/dL (12.0-16.0); LYMPHOCYTES # (AUTO) 1.2 K/uL (1.0-4.8); LYMPHOCYTES % (AUTO) 12.6 % (22.0-44.0); MEAN CORPUSCULAR HEMOGLOBIN 31.8 pg (26.0-34.0); MEAN CORPUSCULAR HGB CONC 33.2 G/dL (31.0-37.0); MEAN CORPUSCULAR VOLUME 96 fL (80-100); MONOCYTES # (AUTO) 0.4 K/uL (0.1-1.0); MONOCYTES % (AUTO) 3.9 % (2.0-9.0); NEUTROPHILS # (AUTO) 7.5 K/uL (1.8-7.7); NEUTROPHILS % (AUTO) 80.9 % (40.0-70.0); RED BLOOD CELL COUNT(AUTO) 3.25 MIL/uL (4.00-5.20); RED CELL DISTRIBUTION WIDTH 12.9 % (11.5-14.5); WHITE BLOOD COUNT (AUTO) 9.3 K/uL (4.5-11.0)
[2017-01-15 10:15] LABS: PLATELET COUNT (AUTO) 225 K/uL (150-450)
[2017-01-15 10:45] VITALS: BP 114/43
[2017-01-15] MEDS: INSULIN ASPART 100 UNITS/ML SQ PRN (11:54)
[2017-01-15 15:00] VITALS: BP 101/53
[2017-01-15] MEDS: CefTRIAXone 1 GM/DEXTROSE 50 ML IV SCH (17:20)
[2017-01-15 20:12] VITALS: BP 127/64
[2017-01-15] MEDS: LORazepam 0.5 MG TABLET PEG SCH (21:03)
[2017-01-15] MEDS: TraZODone HCL 50 MG TABLET PEG SCH (21:03)
[2017-01-15] MEDS: PHENYTOIN 100 MG/4 ML SUSPENSION UDCUP PEG SCH (21:03)
[2017-01-16] MEDS: MetroNIDAZOLE 500 MG/NACL 100 ML IV SCH ×3 (00:25→14:12)
[2017-01-16 00:32] VITALS: BP 116/87
[2017-01-16 04:32] VITALS: BP 146/74
[2017-01-16 06:53] LABS: ANION GAP 12 mmol/L (8-16); CALCIUM, TOTAL 8.2 mg/dL (8.8-10.5); CARBON DIOXIDE 22 mmol/L (22-29); CHLORIDE 103 mmol/L (98-107); CREATININE 0.56 mg/dL (0.60-1.30); GLOMERULAR FILTR. RATE CALC > 60 mL/min (>60); POTASSIUM 4.1 mmol/L (3.5-5.1); SODIUM SERUM 137 mmol/L (136-145); UREA NITROGEN, BLOOD 19 mg/dL (7-18)
[2017-01-16] MEDS: VANCOMYCIN HCL 500 MG in DEXTROSE 5%-WATER 100 ML IV SCH (07:53)
[2017-01-16 08:13] VITALS: BP 117/58
[2017-01-16] MEDS: LISINOPRIL 5 MG TABLET PEG SCH (08:38)
[2017-01-16] MEDS: ASPIRIN 81 MG CHEWABLE TABLET PEG SCH (08:38)
[2017-01-16] MEDS: BuPROPion HCL 75 MG TABLET PEG SCH (08:38)
[2017-01-16] MEDS: MEMANTINE HCL 10 MG TABLET PEG SCH ×2 (08:38→21:08)
[2017-01-16] MEDS: ATORVASTATIN CALCIUM 20 MG TABLET PEG SCH (08:38)
[2017-01-16] MEDS: BusPIRone HCL 10 MG TABLET PEG SCH ×2 (08:38→21:08)
[2017-01-16] MEDS: DONEPEZIL HCL 10 MG TABLET PEG SCH (08:38)
[2017-01-16] MEDS: MULTIVITAMINS WITH MINERALS, THERAPEUTIC 15 ML UDCUP PEG SCH (08:39)
[2017-01-16 11:30] VITALS: BP 120/81
[2017-01-16] MEDS: INSULIN ASPART 100 UNITS/ML SQ PRN (12:07)
[2017-01-16] MEDS ORDERED: ASPI-1061 PEG (15:01)
[2017-01-16] MEDS ORDERED: METR500 PEG (15:04)
[2017-01-16] MEDS: CefTRIAXone 1 GM/DEXTROSE 50 ML IV SCH (16:01)
[2017-01-16 16:21] VITALS: BP 112/60
[2017-01-16 19:38] VITALS: BP 115/67
[2017-01-16] MEDS: LORazepam 0.5 MG TABLET PEG SCH (21:07)
[2017-01-16] MEDS: TraZODone HCL 50 MG TABLET PEG SCH (21:08)
[2017-01-16] MEDS: PHENYTOIN 100 MG/4 ML SUSPENSION UDCUP PEG SCH (21:08)
[2017-01-17 06:43] LABS: GLUCOSE,POINT OF CARE 163 MG/DL (70-110)
[2017-01-17 06:43] LABS: GLUCOSE,POINT OF CARE 149 MG/DL (70-110)
[2017-01-17 06:43] LABS: GLUCOSE COMMENT 1 Received Meds; GLUCOSE,POINT OF CARE 156 MG/DL (70-110)
[2017-01-17 06:43] LABS: GLUCOSE,POINT OF CARE 128 MG/DL (70-110)
[2017-01-17 06:43] LABS: GLUCOSE,POINT OF CARE 125 MG/DL (70-110)
[2017-01-17 06:47] LABS: GLUCOSE,POINT OF CARE 174 MG/DL (70-110)
[2017-01-17 06:48] LABS: GLUCOSE,POINT OF CARE 174 MG/DL (70-110)
[2017-01-17 06:48] LABS: GLUCOSE,POINT OF CARE 121 MG/DL (70-110)
[2017-01-17 06:48] LABS: GLUCOSE COMMENT 1 Received Meds; GLUCOSE,POINT OF CARE 181 MG/DL (70-110)
[2017-01-17 06:52] LABS: GLUCOSE,POINT OF CARE 139 MG/DL (70-110)
[2017-01-17 06:52] LABS: GLUCOSE,POINT OF CARE 105 MG/DL (70-110)
[2017-01-17 06:52] LABS: GLUCOSE COMMENT 1 Received Meds; GLUCOSE,POINT OF CARE 166 MG/DL (70-110)
[2017-01-17 06:52] LABS: GLUCOSE,POINT OF CARE 129 MG/DL (70-110)
[2017-01-17 07:12] LABS: GLUCOSE,POINT OF CARE 87 MG/DL (70-110)
== END 2017-01-16 22:00 | DRG 871 ==
LOC: EMS 14:08 → 5S 20:59
PROVIDERS: ADMIT Internal Medicine; ATTEND Internal Medicine
DX: A41.4 Sepsis due to anaerobes (principal); E43 Unspecified severe protein-calorie malnutrition; J18.9 Pneumonia, unspecified organism; I69.354 Hemiplegia and hemiparesis following cerebral infarction affecting left non-dominant side; A04.7 Enterocolitis due to Clostridium difficile; I11.0 Hypertensive heart disease with heart failure; E11.9 Type 2 diabetes mellitus without complications; E86.0 Dehydration; R13.10 Dysphagia, unspecified; R62.7 Adult failure to thrive; G40.909 Epilepsy, unspecified, not intractable, without status epilepticus; R00.0 Tachycardia, unspecified; E78.00 Pure hypercholesterolemia, unspecified; F02.80 Dementia in other diseases classified elsewhere, unspecified severity, without behavioral disturbance, psychotic disturbance, mood disturbance, and anxiety; G30.9 Alzheimer's disease, unspecified; F32.9 Major depressive disorder, single episode, unspecified; I50.9 Heart failure, unspecified; H54.41 Blindness, right eye, normal vision left eye; F41.9 Anxiety disorder, unspecified; Z79.4 Long term (current) use of insulin; Z68.27 Body mass index [BMI] 27.0-27.9, adult; Z87.440 Personal history of urinary (tract) infections; Z93.1 Gastrostomy status; Z74.01 Bed confinement status; Z79.82 Long term (current) use of aspirin; Z79.899 Other long term (current) drug therapy
CPT/HCPCS: 71260; 72193; 74160; 82962; 83605; 84145; 87040; 87070; 87081; 87205; 87324; 87449; 87804; 93005; 94640; 96361; 96365; 99285; J0696; J3370; J3490; J7030; J7040; J7050; J7060

== ENCOUNTER → 2017-01-23 | Outpatient (CLI) | payer MEDICARE, OTHER ==
[~2017-01-23] MED LIST changes: +ASPI-1061 PEG; -AUD NEB; +BUPR150SR PO; +BUSP10TA23 PEG; +CARB25TA3 GT; +DONE10TA GT; +ESOM20CA31 PEG; +GADOBUTROL 1 MMOL/ML 10 ML VIAL IVP ONE; +GINGKO BILOBA GT; +GINK120T4 GT; +LISI-660 PEG; +LORA0.5T2 PEG; +MEMA10TA11 PEG; +METR500 PEG; -MOM30 PEG; -NITR50CA PEG; -PANT40TA25 PEG; +SITA50 PEG; +TRAZ-144 PEG
== END | disposition home or self-care (01) ==
LOC: RADPV 09:27
PROVIDERS: ATTEND Internal Medicine Geriatric Medicine
DX: E04.2 Nontoxic multinodular goiter (principal)
CPT/HCPCS: 72197; 74183; 76536; A9585

== ENCOUNTER 2017-02-25 19:29 | Inpatient (IN) | payer MEDICARE, OTHER ==
[~2017-02-25] VITALS: Ht 149.9 cm; Wt 58.6 kg
[~2017-02-25 19:29] MED LIST changes: -CARB25TA3 GT; -DONE10TA GT; -GADOBUTROL 1 MMOL/ML 10 ML VIAL IVP ONE; -GINGKO BILOBA GT; -GINK120T4 GT
[2017-02-25] MEDS ORDERED: ATOR20TA86 GT (20:01)
[2017-02-25] MEDS ORDERED: DONE10TA GT (20:01)
[2017-02-25] MEDS ORDERED: CARB25TA3 GT (20:01)
[2017-02-25] MEDS ORDERED: GINGKO BILOBA GT (20:01)
[2017-02-25] MEDS ORDERED: ACETAMINOPHEN 1000 MG/ISO-OSM 100 ML IV ONE (20:15)
[2017-02-25 20:32] LABS: BASOPHILS % (AUTO) 0.4 % (0.0-2.0); EOSINOPHILS % (AUTO) 3.3 % (1.0-6.0); HEMATOCRIT 50.5 % (36-46); HEMOGLOBIN 16.5 g/dL (12.0-16.0); LYMPHOCYTES % (AUTO) 20.4 % (22.0-44.0); MEAN CORPUSCULAR HEMOGLOBIN 32.7 pg (26.0-34.0); MEAN CORPUSCULAR HGB CONC 32.7 G/dL (31.0-37.0); MEAN CORPUSCULAR VOLUME 100 fL (80-100); MONOCYTES # (AUTO) 0.3 K/uL (0.1-1.0); MONOCYTES % (AUTO) 5.4 % (2.0-9.0); NEUTROPHILS # (AUTO) 3.5 K/uL (1.8-7.7); NEUTROPHILS % (AUTO) 70.5 % (40.0-70.0); PLATELET COUNT (AUTO) 132 K/uL (150-450); RED BLOOD CELL COUNT(AUTO) 5.05 MIL/uL (4.00-5.20); RED CELL DISTRIBUTION WIDTH 13.1 % (11.5-14.5)
[2017-02-25 20:40] LABS: ANION GAP 9 mmol/L (8-16); CALCIUM, TOTAL 8.7 mg/dL (8.8-10.5); CARBON DIOXIDE 26 mmol/L (22-29); CHLORIDE 102 mmol/L (98-107); CREATININE 0.92 mg/dL (0.60-1.30); GLOMERULAR FILTR. RATE CALC 59 mL/min (>60); POTASSIUM 4.5 mmol/L (3.5-5.1); SODIUM SERUM 137 mmol/L (136-145); UREA NITROGEN, BLOOD 39 mg/dL (7-18)
[2017-02-25 20:45] LABS: ALANINE AMINOTRANSFERASE 37 U/L (12-78); ALBUMIN 2.7 g/dL (3.4-5.0); ASPARTATE AMINOTRANSFERASE 28 U/L (15-37); BILIRUBIN,TOTAL 0.3 mg/dL (0.1-1.0); TOTAL PROTEIN, SERUM 8.2 g/dL (6.4-8.2)
[2017-02-25 20:52] LABS: B-TYPE NATRIURETIC PEPTIDE 23 pg/mL (0-100)
[2017-02-25 21:06] LABS: LACTIC ACID 2.1 mmol/L (0.4-2.0)
[2017-02-25 21:07] LABS: ADD UA MICROSCOPIC NO; APPEARANCE,URINE CLEAR (CLEAR); GLUCOSE, URINE (UA) NEGATIVE (NEGATIVE); KETONES,URINE NEGATIVE (NEGATIVE); LEUKOCYTE ESTERASE ,URINE NEGATIVE (NEGATIVE); OCCULT BLOOD,URINE NEGATIVE (NEGATIVE); PH,URINE 7.5 (5.0-8.0); PROTEIN,URINE TRACE (NEGATIVE)
[2017-02-25] MEDS ORDERED: 0.9% SODIUM CHLORIDE 10 ML SYRINGE IVP PRN (21:15)
[2017-02-25] MEDS ORDERED: AZITHROMYCIN 500 MG/NS 250 ML IV ONE (21:15)
[2017-02-25] MEDS ORDERED: CefTRIAXone 1 GM/DEXTROSE 50 ML IV ONE (21:15)
[2017-02-25] MEDS ORDERED: ACETAMINOPHEN 325 MG TABLET PO PRN (21:15)
[2017-02-25 22:24] LABS: REFLEX LACTIC ACID? YES YES
[2017-02-26] VITALS (7 sets, daily range): BP systolic 119–157; BP diastolic 62–94
[2017-02-26] MEDS ORDERED: LORazepam 0.5 MG TABLET PEG PRN (00:45)
[2017-02-26] MEDS ORDERED: IPRATROPIUM BROMIDE 0.5 MG/2.5 ML NEB SOLUTION NEB PRN (00:45)
[2017-02-26] MEDS ORDERED: ACETAMINOPHEN 650 MG/20.3 ML SOLUTION UDCUP GT PRN (00:45)
[2017-02-26] MEDS ORDERED: ONDANSETRON HCL 4 MG/2 ML VIAL IVP PRN (00:45)
[2017-02-26] MEDS ORDERED: MAGNESIUM HYDROXIDE SUSPENSION 30 ML UDCUP GT PRN (00:45)
[2017-02-26] MEDS ORDERED: ALBUTEROL SULFATE 2.5 MG/0.5 ML NEB SOLUTION NEB PRN (00:45)
[2017-02-26] MEDS ORDERED: BISACODYL 10 MG RECTAL RECTAL SUPPOSITORY PR PRN (00:45)
[2017-02-26] MEDS ORDERED: ZOLPIDEM TARTRATE 5 MG TABLET GT PRN (00:45)
[2017-02-26] MEDS ORDERED: SODIUM CHLORIDE 0.9% 250 ML IV ONE (01:08)
[2017-02-26] MEDS: PIPERACILLIN/TAZO 3.375 GM/D5W 50 ML IV SCH ×4 (01:54→17:43)
[2017-02-26 05:31] LABS: BASOPHILS % (AUTO) 0.3 % (0.0-2.0); EOSINOPHILS % (AUTO) 3.4 % (1.0-6.0); HEMATOCRIT 31.9 % (36-46); HEMOGLOBIN 10.5 g/dL (12.0-16.0); LYMPHOCYTES # (AUTO) 1.9 K/uL (1.0-4.8); LYMPHOCYTES % (AUTO) 19.7 % (22.0-44.0); MEAN CORPUSCULAR HEMOGLOBIN 33.1 pg (26.0-34.0); MEAN CORPUSCULAR HGB CONC 33.1 G/dL (31.0-37.0); MEAN CORPUSCULAR VOLUME 100 fL (80-100); MONOCYTES # (AUTO) 0.6 K/uL (0.1-1.0); NEUTROPHILS # (AUTO) 6.8 K/uL (1.8-7.7); NEUTROPHILS % (AUTO) 70.6 % (40.0-70.0); PLATELET COUNT (AUTO) 208 K/uL (150-450); RED BLOOD CELL COUNT(AUTO) 3.18 MIL/uL (4.00-5.20); RED CELL DISTRIBUTION WIDTH 13.2 % (11.5-14.5); WHITE BLOOD COUNT (AUTO) 9.7 K/uL (4.5-11.0)
[2017-02-26 05:52] LABS: GLUCOSE COMMENT 1 Received Meds; GLUCOSE,POINT OF CARE 97 MG/DL (70-110)
[2017-02-26 06:17] LABS: GLUCOSE COMMENT 1 Received Meds; GLUCOSE,POINT OF CARE 98 MG/DL (70-110)
[2017-02-26 06:22] LABS: ANION GAP 7 mmol/L (8-16); CALCIUM, TOTAL 8.2 mg/dL (8.8-10.5); CARBON DIOXIDE 27 mmol/L (22-29); CHLORIDE 103 mmol/L (98-107); CHOL/HDL RATIO 5.8 (3.9-5.7); CREATININE 0.92 mg/dL (0.60-1.30); GLOMERULAR FILTR. RATE CALC 59 mL/min (>60); POTASSIUM 4.1 mmol/L (3.5-5.1); SODIUM SERUM 137 mmol/L (136-145); THYROID STIMULATING HORMONE 1.35 uIU/mL (0.36-3.74); UREA NITROGEN, BLOOD 39 mg/dL (7-18)
[2017-02-26 07:38] LABS: HEMOGLOBIN A1C 6.8 % (4.5-6.2)
[2017-02-26 08:46] LABS: VITAMIN B12 LEVEL 879 pg/mL (211-911)
[2017-02-26] MEDS ORDERED: [UNRECOGNIZED DRUG - OTHER] GT SCH (09:00)
[2017-02-26] MEDS: ENOXAPARIN SODIUM 40 MG/0.4 ML PF SYRINGE SQ SCH (09:02)
[2017-02-26] MEDS: LISINOPRIL 5 MG TABLET GT SCH (09:02)
[2017-02-26] MEDS: ASPIRIN 81 MG CHEWABLE TABLET GT SCH (09:02)
[2017-02-26] MEDS: LANSOPRAZOLE 30 MG SOLUBLE TABLET GT SCH (09:03)
[2017-02-26] MEDS: MEMANTINE HCL 10 MG TABLET GT SCH ×2 (09:03→20:15)
[2017-02-26] MEDS: ATORVASTATIN CALCIUM 10 MG TABLET GT SCH (20:15)
[2017-02-26] MEDS: PHENYTOIN 100 MG/4 ML SUSPENSION UDCUP GT SCH (20:15)
[2017-02-26] MEDS: TraZODone HCL 50 MG TABLET GT SCH (20:16)
[2017-02-26] MEDS: DONEPEZIL HCL 10 MG TABLET GT SCH (20:16)
[2017-02-27] MEDS: PIPERACILLIN/TAZO 3.375 GM/D5W 50 ML IV SCH ×4 (00:24→18:29)
[2017-02-27 03:36] VITALS: BP 133/70
[2017-02-27 07:10] LABS: ANION GAP 11 mmol/L (8-16); CALCIUM, TOTAL 8.5 mg/dL (8.8-10.5); CARBON DIOXIDE 22 mmol/L (22-29); CHLORIDE 103 mmol/L (98-107); CREATININE 0.85 mg/dL (0.60-1.30); GLOMERULAR FILTR. RATE CALC > 60 mL/min (>60); POTASSIUM 4.3 mmol/L (3.5-5.1); SODIUM SERUM 136 mmol/L (136-145); UREA NITROGEN, BLOOD 35 mg/dL (7-18)
[2017-02-27 07:18] VITALS: BP 119/72
[2017-02-27 07:23] LABS: HEMATOCRIT 32.4 % (36-46); MEAN CORPUSCULAR HEMOGLOBIN 33.7 pg (26.0-34.0); MEAN CORPUSCULAR HGB CONC 33.8 G/dL (31.0-37.0); MEAN CORPUSCULAR VOLUME 100 fL (80-100); PLATELET COUNT (AUTO) 211 K/uL (150-450); RED BLOOD CELL COUNT(AUTO) 3.26 MIL/uL (4.00-5.20); RED CELL DISTRIBUTION WIDTH 12.8 % (11.5-14.5)
[2017-02-27 07:26] LABS: WHITE BLOOD COUNT (AUTO) 12.7 K/uL (4.5-11.0)
[2017-02-27] MEDS: MEMANTINE HCL 10 MG TABLET GT SCH ×2 (08:10→19:31)
[2017-02-27] MEDS: LISINOPRIL 5 MG TABLET GT SCH (08:10)
[2017-02-27] MEDS: ENOXAPARIN SODIUM 40 MG/0.4 ML PF SYRINGE SQ SCH (08:10)
[2017-02-27] MEDS: ASPIRIN 81 MG CHEWABLE TABLET GT SCH (08:10)
[2017-02-27] MEDS: LANSOPRAZOLE 30 MG SOLUBLE TABLET GT SCH (08:10)
[2017-02-27 09:17] LABS: BAND NEUTROPHILS % (MANUAL) 7 % (1-5); LYMPHOCYTES % (MANUAL) 37 % (22-44); TOTAL CELLS COUNTED 100
[2017-02-27 09:18] LABS: RBC MORPHOLOGY COMMENT NORMAL RBC MORPH
[2017-02-27 11:41] VITALS: BP 134/69
[2017-02-27] MEDS ORDERED: VANCOMYCIN HCL 1.25 GM in DEXTROSE 5%-WATER 250 ML IV ONE (15:00)
[2017-02-27] MEDS ORDERED: 0.9% SODIUM CHLORIDE 10 ML SYRINGE IVP PRN (15:45)
[2017-02-27 16:15] VITALS: BP 125/83
[2017-02-27 16:43] LABS: GLUCOSE COMMENT 1 Received Meds; GLUCOSE,POINT OF CARE 177 MG/DL (70-110)
[2017-02-27] MEDS: TraZODone HCL 50 MG TABLET GT SCH (19:31)
[2017-02-27] MEDS: DONEPEZIL HCL 10 MG TABLET GT SCH (19:31)
[2017-02-27] MEDS: PHENYTOIN 100 MG/4 ML SUSPENSION UDCUP GT SCH (19:32)
[2017-02-27] MEDS: ATORVASTATIN CALCIUM 10 MG TABLET GT SCH (19:32)
[2017-02-27 19:40] VITALS: BP 149/92
[2017-02-27 23:38] VITALS: BP 133/90
[2017-02-28] MEDS: PIPERACILLIN/TAZO 3.375 GM/D5W 50 ML IV SCH ×4 (00:21→19:26)
[2017-02-28 04:39] VITALS: BP 122/57
[2017-02-28 06:32] LABS: GLUCOSE COMMENT 1 Received Meds; GLUCOSE,POINT OF CARE 139 MG/DL (70-110)
[2017-02-28 07:05] LABS: BASOPHILS % (AUTO) 0.3 % (0.0-2.0); EOSINOPHILS % (AUTO) 5.1 % (1.0-6.0); HEMATOCRIT 32.1 % (36-46); HEMOGLOBIN 10.7 g/dL (12.0-16.0); LYMPHOCYTES # (AUTO) 1.7 K/uL (1.0-4.8); LYMPHOCYTES % (AUTO) 18.2 % (22.0-44.0); MEAN CORPUSCULAR HEMOGLOBIN 33.2 pg (26.0-34.0); MEAN CORPUSCULAR HGB CONC 33.4 G/dL (31.0-37.0); MEAN CORPUSCULAR VOLUME 99 fL (80-100); MONOCYTES # (AUTO) 0.6 K/uL (0.1-1.0); MONOCYTES % (AUTO) 6.9 % (2.0-9.0); NEUTROPHILS # (AUTO) 6.3 K/uL (1.8-7.7); NEUTROPHILS % (AUTO) 69.5 % (40.0-70.0); PLATELET COUNT (AUTO) 206 K/uL (150-450); RED BLOOD CELL COUNT(AUTO) 3.23 MIL/uL (4.00-5.20); RED CELL DISTRIBUTION WIDTH 13.1 % (11.5-14.5); WHITE BLOOD COUNT (AUTO) 9.1 K/uL (4.5-11.0)
[2017-02-28 07:06] LABS: ANION GAP 9 mmol/L (8-16); CALCIUM, TOTAL 8.5 mg/dL (8.8-10.5); CARBON DIOXIDE 25 mmol/L (22-29); CHLORIDE 99 mmol/L (98-107); CREATININE 0.75 mg/dL (0.60-1.30); GLOMERULAR FILTR. RATE CALC > 60 mL/min (>60); POTASSIUM 3.7 mmol/L (3.5-5.1); SODIUM SERUM 133 mmol/L (136-145); UREA NITROGEN, BLOOD 19 mg/dL (7-18)
[2017-02-28 07:54] VITALS: BP 133/86
[2017-02-28] MEDS: VANCOMYCIN HCL 500 MG in DEXTROSE 5%-WATER 100 ML IV SCH ×2 (08:32→20:22)
[2017-02-28] MEDS: ENOXAPARIN SODIUM 40 MG/0.4 ML PF SYRINGE SQ SCH (09:57)
[2017-02-28] MEDS: MEMANTINE HCL 10 MG TABLET GT SCH ×2 (09:58→20:56)
[2017-02-28] MEDS: SitaGLIPtin PHOSPHATE 50 MG TABLET PEG SCH (09:58)
[2017-02-28] MEDS: LANSOPRAZOLE 30 MG SOLUBLE TABLET GT SCH (09:59)
[2017-02-28] MEDS: ASPIRIN 81 MG CHEWABLE TABLET GT SCH (09:59)
[2017-02-28] MEDS: LISINOPRIL 5 MG TABLET GT SCH (09:59)
[2017-02-28] MEDS ORDERED: GINK120T4 GT (11:02)
[2017-02-28 11:28] VITALS: BP 150/69
[2017-02-28 15:12] LABS: GLUCOSE,POINT OF CARE 135 MG/DL (70-110)
[2017-02-28 15:30] VITALS: BP 132/106
[2017-02-28 18:18] LABS: GLUCOSE,POINT OF CARE 164 MG/DL (70-110)
[2017-02-28 19:48] VITALS: BP 101/61
[2017-02-28] MEDS: ATORVASTATIN CALCIUM 10 MG TABLET GT SCH (20:56)
[2017-02-28] MEDS: PHENYTOIN 100 MG/4 ML SUSPENSION UDCUP GT SCH (20:56)
[2017-02-28] MEDS: TraZODone HCL 50 MG TABLET GT SCH (20:56)
[2017-02-28] MEDS: DONEPEZIL HCL 10 MG TABLET GT SCH (20:57)
[2017-03-01 00:02] VITALS: BP 129/78
[2017-03-01] MEDS: PIPERACILLIN/TAZO 3.375 GM/D5W 50 ML IV SCH ×3 (01:07→14:10)
[2017-03-01 04:48] LABS: GLUCOSE,POINT OF CARE 130 MG/DL (70-110)
[2017-03-01 05:12] VITALS: BP 123/57
[2017-03-01 06:57] LABS: BASOPHILS % (AUTO) 0.2 % (0.0-2.0); EOSINOPHILS % (AUTO) 4.2 % (1.0-6.0); HEMATOCRIT 33.3 % (36-46); HEMOGLOBIN 10.8 g/dL (12.0-16.0); LYMPHOCYTES # (AUTO) 1.8 K/uL (1.0-4.8); LYMPHOCYTES % (AUTO) 19.6 % (22.0-44.0); MEAN CORPUSCULAR HEMOGLOBIN 32.4 pg (26.0-34.0); MEAN CORPUSCULAR HGB CONC 32.5 G/dL (31.0-37.0); MEAN CORPUSCULAR VOLUME 100 fL (80-100); MONOCYTES # (AUTO) 0.6 K/uL (0.1-1.0); MONOCYTES % (AUTO) 6.3 % (2.0-9.0); NEUTROPHILS # (AUTO) 6.6 K/uL (1.8-7.7); NEUTROPHILS % (AUTO) 69.7 % (40.0-70.0); PLATELET COUNT (AUTO) 216 K/uL (150-450); RED BLOOD CELL COUNT(AUTO) 3.34 MIL/uL (4.00-5.20); WHITE BLOOD COUNT (AUTO) 9.4 K/uL (4.5-11.0)
[2017-03-01 07:09] LABS: ANION GAP 8 mmol/L (8-16); CALCIUM, TOTAL 8.5 mg/dL (8.8-10.5); CARBON DIOXIDE 26 mmol/L (22-29); CHLORIDE 99 mmol/L (98-107); CREATININE 0.89 mg/dL (0.60-1.30); GLOMERULAR FILTR. RATE CALC > 60 mL/min (>60); POTASSIUM 3.8 mmol/L (3.5-5.1); SODIUM SERUM 133 mmol/L (136-145); UREA NITROGEN, BLOOD 21 mg/dL (7-18)
[2017-03-01 07:19] VITALS: BP 117/61
[2017-03-01] MEDS ORDERED: VANCOMYCIN HCL 750 MG in DEXTROSE 5%-WATER 150 ML IV SCH (08:00)
[2017-03-01] MEDS: LISINOPRIL 5 MG TABLET GT SCH (08:15)
[2017-03-01] MEDS: ASPIRIN 81 MG CHEWABLE TABLET GT SCH (08:15)
[2017-03-01] MEDS: ENOXAPARIN SODIUM 40 MG/0.4 ML PF SYRINGE SQ SCH (08:16)
[2017-03-01] MEDS: SitaGLIPtin PHOSPHATE 50 MG TABLET PEG SCH (08:16)
[2017-03-01] MEDS: MEMANTINE HCL 10 MG TABLET GT SCH (08:16)
[2017-03-01] MEDS: LANSOPRAZOLE 30 MG SOLUBLE TABLET GT SCH (08:16)
[2017-03-01 08:23] LABS: GLUCOSE,POINT OF CARE 144 MG/DL (70-110)
[2017-03-01 08:34] LABS: PROCALCITONIN (PCT) 0.19 ng/mL (<0.50)
[2017-03-01 11:36] VITALS: BP 138/72
[2017-03-01 12:08] LABS: GLUCOSE,POINT OF CARE 153 MG/DL (70-110)
[2017-03-01 12:15] LABS: INR 0.9 (0.9-1.1); PROTHROMBIN TIME 9.9 SEC (9.4-11.6)
[2017-03-01 15:34] VITALS: BP 125/81
[2017-03-01 18:23] LABS: GLUCOSE,POINT OF CARE 154 MG/DL (70-110)
== END 2017-03-01 17:40 | DRG 871 ==
LOC: EMS 19:31 → 6N 21:52
PROVIDERS: ADMIT Internal Medicine Geriatric Medicine; ATTEND Internal Medicine Geriatric Medicine
DX: A41.2 Sepsis due to unspecified staphylococcus (principal); J69.0 Pneumonitis due to inhalation of food and vomit; E87.1 Hypo-osmolality and hyponatremia; I50.9 Heart failure, unspecified; I11.0 Hypertensive heart disease with heart failure; E11.9 Type 2 diabetes mellitus without complications; F02.80 Dementia in other diseases classified elsewhere, unspecified severity, without behavioral disturbance, psychotic disturbance, mood disturbance, and anxiety; G30.9 Alzheimer's disease, unspecified; E78.00 Pure hypercholesterolemia, unspecified; F41.9 Anxiety disorder, unspecified; F32.9 Major depressive disorder, single episode, unspecified; H54.41 Blindness, right eye, normal vision left eye; M24.50 Contracture, unspecified joint; E86.0 Dehydration; E78.5 Hyperlipidemia, unspecified; R26.9 Unspecified abnormalities of gait and mobility; H18.419 Arcus senilis, unspecified eye; G20 Parkinson's disease; K21.9 Gastro-esophageal reflux disease without esophagitis; F01.50 Vascular dementia, unspecified severity, without behavioral disturbance, psychotic disturbance, mood disturbance, and anxiety; R62.7 Adult failure to thrive; R13.10 Dysphagia, unspecified; Z79.899 Other long term (current) drug therapy; Z79.82 Long term (current) use of aspirin; Z86.73 Personal history of transient ischemic attack (TIA), and cerebral infarction without residual deficits; Z74.01 Bed confinement status; Z93.1 Gastrostomy status; Z87.440 Personal history of urinary (tract) infections; Z86.79 Personal history of other diseases of the circulatory system
CPT/HCPCS: 51702; 82306; 82607; 82746; 82962; 83036; 83605; 83735; 84145; 84439; 84443; 87040; 93005; 96365; 96366; 96368; 99285; J0131; J0456; J0696; J1650; J2543; J3370; J7050; J7060

== ENCOUNTER 2017-05-20 13:12 | Inpatient (IN) | payer MEDICARE, OTHER ==
[~2017-05-20] VITALS: Ht 142.2 cm; Wt 59.0 kg
[~2017-05-20 13:12] MED LIST changes: -ASPI81 PO; -ATOR20TA86 GT; -BUPR150SR PO; +BUPR75 PO; +CARB25TA3 GT; -ESOM20CA31 PEG; +FURO20 PO; -INSREG SQ; -MEMA10TA11 PEG; -METR500 PEG; -PHENL GT; +PHENL PO
[2017-05-20 13:31] LABS: GLUCOSE,POINT OF CARE 140 MG/DL (70-110)
[2017-05-20] MEDS ORDERED: CARB1TAB35 PEG (13:44)
[2017-05-20] MEDS ORDERED: 0.9% SODIUM CHLORIDE 10 ML SYRINGE IVP PRN ×2 (13:45→18:15)
[2017-05-20 14:14] LABS: BASOPHILS # (AUTO) 0.02 K/uL (0.00-0.20); BASOPHILS % (AUTO) 0.1 % (0.0-2.0); EOSINOPHILS # (AUTO) 0.35 K/uL (0.00-0.70); HEMATOCRIT 33.2 % (36-46); HEMOGLOBIN 11.3 g/dL (12.0-16.0); LYMPHOCYTES # (AUTO) 1.9 K/uL (1.0-4.8); MEAN CORPUSCULAR HEMOGLOBIN 33.3 pg (26.0-34.0); MEAN CORPUSCULAR HGB CONC 34.1 G/dL (31.0-37.0); MEAN CORPUSCULAR VOLUME 98 fL (80-100); MONOCYTES # (AUTO) 0.4 K/uL (0.1-1.0); MONOCYTES % (AUTO) 3.4 % (2.0-9.0); NEUTROPHILS # (AUTO) 8.6 K/uL (1.8-7.7); NEUTROPHILS % (AUTO) 76.5 % (40.0-70.0); PLATELET COUNT (AUTO) 281 K/uL (150-450); RED CELL DISTRIBUTION WIDTH 14.8 % (11.5-14.5); WHITE BLOOD COUNT (AUTO) 11.3 K/uL (4.5-11.0)
[2017-05-20] MEDS ORDERED: SODIUM CHLORIDE 0.9% 1,000 ML IV ONE (14:15)
[2017-05-20] MEDS ORDERED: ACETAMINOPHEN 650 MG RECTAL SUPPOSITORY PR ONE (14:15)
[2017-05-20 14:28] LABS: ANION GAP 11 mmol/L (8-16); CALCIUM, TOTAL 8.4 mg/dL (8.8-10.5); CARBON DIOXIDE 27 mmol/L (22-29); CHLORIDE 98 mmol/L (98-107); CREATININE 0.86 mg/dL (0.60-1.30); GLOMERULAR FILTR. RATE CALC > 60 mL/min (>60); POTASSIUM 4.3 mmol/L (3.5-5.1); SODIUM SERUM 136 mmol/L (136-145); UREA NITROGEN, BLOOD 40 mg/dL (7-18)
[2017-05-20 14:34] LABS: ALANINE AMINOTRANSFERASE 7 U/L (12-78); ALBUMIN 2.7 g/dL (3.4-5.0); ASPARTATE AMINOTRANSFERASE 14 U/L (15-37); BILIRUBIN,TOTAL 0.2 mg/dL (0.1-1.0); TOTAL PROTEIN, SERUM 7.9 g/dL (6.4-8.2)
[2017-05-20 14:36] LABS: LACTIC ACID 1.1 mmol/L (0.4-2.0)
[2017-05-20 15:29] LABS: APPEARANCE,URINE CLEAR (CLEAR); GLUCOSE, URINE (UA) NEGATIVE (NEGATIVE); KETONES,URINE NEGATIVE (NEGATIVE); LEUKOCYTE ESTERASE ,URINE MODERATE (NEGATIVE); OCCULT BLOOD,URINE NEGATIVE (NEGATIVE); PROTEIN,URINE NEGATIVE (NEGATIVE)
[2017-05-20 15:32] LABS: ADD UA MICROSCOPIC YES
[2017-05-20 15:44] LABS: RBC,URINE 0-2 /HPF (0-2)
[2017-05-20 15:45] LABS: SQUAMOUS EPITHELIAL CELL,UR Few /LPF (None Seen)
[2017-05-20] MEDS ORDERED: PIPERACILLIN/TAZO 3.375 GM/D5W 50 ML IV ONE (17:00)
[2017-05-20] MEDS ORDERED: ACETAMINOPHEN 325 MG TABLET PO PRN ×2 (18:15→20:00)
[2017-05-20] MEDS ORDERED: ONDANSETRON HCL 4 MG/2 ML VIAL IVP PRN ×2 (18:15→20:00)
[2017-05-20 19:28] VITALS: BP 110/71
[2017-05-20] MEDS ORDERED: DEXTROSE 50%-WATER 25 GM/50 ML SYRINGE IVP PRN (20:00)
[2017-05-20] MEDS ORDERED: ALBUTEROL SULFATE 2.5 MG/0.5 ML NEB SOLUTION NEB PRN (20:00)
[2017-05-20] MEDS ORDERED: OxyCODONE HCL/ACETAMINOPHEN 5-325 MG TABLET PO PRN (20:00)
[2017-05-20] MEDS ORDERED: DEXTROSE 5%-0.45% SODIUM CHL 1,000 ML IV ONE (20:00)
[2017-05-20] MEDS ORDERED: MAGNESIUM HYDROXIDE SUSPENSION 30 ML UDCUP PO PRN (20:00)
[2017-05-20] MEDS: DOCUSATE SODIUM 100 MG CAPSULE PO SCH (21:17)
[2017-05-20 23:23] VITALS: BP 114/58
[2017-05-21] MEDS: PIPERACILLIN SODIUM/TAZOBACTAM 2.25 GM in DEXTROSE 5%-WATER 50 ML IV SCH ×5 (00:04→23:59)
[2017-05-21] MEDS: HEPARIN SODIUM,PORCINE 5,000 UNITS/ML VIAL SQ SCH ×4 (00:05→23:59)
[2017-05-21 04:18] VITALS: BP 124/64
[2017-05-21 06:17] LABS: GLUCOSE,POINT OF CARE 130 MG/DL (70-110)
[2017-05-21 08:04] VITALS: BP 130/52
[2017-05-21] MEDS: DOCUSATE SODIUM 100 MG CAPSULE PO SCH ×2 (08:27→20:43)
[2017-05-21] MEDS: ASPIRIN 81 MG CHEWABLE TABLET PO SCH (08:27)
[2017-05-21 11:39] VITALS: BP 139/84
[2017-05-21] MEDS: INSULIN ASPART 100 UNITS/ML SQ PRN (12:21)
[2017-05-21 15:07] LABS: GLUCOSE,POINT OF CARE 142 MG/DL (70-110)
[2017-05-21 15:07] LABS: GLUCOSE,POINT OF CARE 107 MG/DL (70-110)
[2017-05-21 16:29] VITALS: BP 95/65
[2017-05-21] MEDS ORDERED: SODIUM CHLORIDE 0.9% 250 ML IV ONE (17:56)
[2017-05-21 20:43] VITALS: BP 138/67
[2017-05-21 21:57] LABS: GLUCOSE,POINT OF CARE 138 MG/DL (70-110)
[2017-05-21 23:51] LABS: GLUCOSE,POINT OF CARE 122 MG/DL (70-110)
[2017-05-22] VITALS (7 sets, daily range): BP systolic 120–158; BP diastolic 70–90
[2017-05-22] MEDS: PIPERACILLIN SODIUM/TAZOBACTAM 2.25 GM in DEXTROSE 5%-WATER 50 ML IV SCH ×4 (06:21→23:59)
[2017-05-22 06:23] LABS: BASOPHILS % (AUTO) 0.1 % (0.0-2.0); EOSINOPHILS % (AUTO) 4.7 % (1.0-6.0); HEMATOCRIT 34.1 % (36-46); HEMOGLOBIN 11.9 g/dL (12.0-16.0); LYMPHOCYTES # (AUTO) 1.2 K/uL (1.0-4.8); LYMPHOCYTES % (AUTO) 14.7 % (22.0-44.0); MEAN CORPUSCULAR HGB CONC 34.8 G/dL (31.0-37.0); MEAN CORPUSCULAR VOLUME 98 fL (80-100); MONOCYTES # (AUTO) 0.4 K/uL (0.1-1.0); MONOCYTES % (AUTO) 4.5 % (2.0-9.0); NEUTROPHILS # (AUTO) 6.4 K/uL (1.8-7.7); PLATELET COUNT (AUTO) 308 K/uL (150-450); RED BLOOD CELL COUNT(AUTO) 3.49 MIL/uL (4.00-5.20); WHITE BLOOD COUNT (AUTO) 8.4 K/uL (4.5-11.0)
[2017-05-22 06:30] LABS: ANION GAP 11 mmol/L (8-16); CALCIUM, TOTAL 8.8 mg/dL (8.8-10.5); CARBON DIOXIDE 24 mmol/L (22-29); CHLORIDE 100 mmol/L (98-107); CREATININE 0.72 mg/dL (0.60-1.30); GLOMERULAR FILTR. RATE CALC > 60 mL/min (>60); POTASSIUM 4.2 mmol/L (3.5-5.1); SODIUM SERUM 135 mmol/L (136-145); UREA NITROGEN, BLOOD 17 mg/dL (7-18)
[2017-05-22 07:13] LABS: GLUCOSE,POINT OF CARE 133 MG/DL (70-110)
[2017-05-22] MEDS: HEPARIN SODIUM,PORCINE 5,000 UNITS/ML VIAL SQ SCH ×3 (09:00→23:59)
[2017-05-22] MEDS: ASPIRIN 81 MG CHEWABLE TABLET PO SCH (09:00)
[2017-05-22] MEDS: DOCUSATE SODIUM 100 MG CAPSULE PO SCH ×2 (09:00→20:44)
[2017-05-22] MEDS: INSULIN ASPART 100 UNITS/ML SQ PRN ×2 (12:21→17:36)
[2017-05-22] MEDS ORDERED: SODIUM CHLORIDE 0.9% 500 ML IV ONE (12:25)
[2017-05-22 12:48] LABS: GLUCOSE COMMENT 1 Received Meds; GLUCOSE,POINT OF CARE 145 MG/DL (70-110)
[2017-05-22 17:17] LABS: GLUCOSE COMMENT 1 Received Meds; GLUCOSE,POINT OF CARE 155 MG/DL (70-110)
[2017-05-22] MEDS: CARBIDOPA/LEVODOPA 25-100 MG TABLET PEG SCH (20:44)
[2017-05-22] MEDS: BuPROPion HCL 75 MG TABLET PO SCH (20:44)
[2017-05-22] MEDS: BusPIRone HCL 10 MG TABLET PEG SCH (20:44)
[2017-05-23 05:17] VITALS: BP 151/73
[2017-05-23] MEDS: PIPERACILLIN SODIUM/TAZOBACTAM 2.25 GM in DEXTROSE 5%-WATER 50 ML IV SCH ×2 (05:44→11:08)
[2017-05-23 06:54] LABS: ANION GAP 12 mmol/L (8-16); CALCIUM, TOTAL 8.9 mg/dL (8.8-10.5); CARBON DIOXIDE 22 mmol/L (22-29); CHLORIDE 102 mmol/L (98-107); CREATININE 0.54 mg/dL (0.60-1.30); GLOMERULAR FILTR. RATE CALC > 60 mL/min (>60); POTASSIUM 4.1 mmol/L (3.5-5.1); SODIUM SERUM 136 mmol/L (136-145); UREA NITROGEN, BLOOD 14 mg/dL (7-18)
[2017-05-23 08:12] VITALS: BP 143/78
[2017-05-23] MEDS: DOCUSATE SODIUM 100 MG CAPSULE PO SCH (08:37)
[2017-05-23] MEDS: BuPROPion HCL 75 MG TABLET PO SCH (08:37)
[2017-05-23] MEDS: ASPIRIN 81 MG CHEWABLE TABLET PO SCH (08:37)
[2017-05-23] MEDS: CARBIDOPA/LEVODOPA 25-100 MG TABLET PEG SCH (08:38)
[2017-05-23] MEDS: HEPARIN SODIUM,PORCINE 5,000 UNITS/ML VIAL SQ SCH ×2 (08:38→15:44)
[2017-05-23] MEDS: BusPIRone HCL 10 MG TABLET PEG SCH (08:38)
[2017-05-23] MEDS: INSULIN ASPART 100 UNITS/ML SQ PRN (11:25)
[2017-05-23 11:37] LABS: GLUCOSE COMMENT 1 Received Meds; GLUCOSE,POINT OF CARE 140 MG/DL (70-110)
[2017-05-23 11:37] LABS: GLUCOSE,POINT OF CARE 119 MG/DL (70-110)
[2017-05-23 11:38] LABS: GLUCOSE COMMENT 1 Received Meds; GLUCOSE,POINT OF CARE 168 MG/DL (70-110)
[2017-05-23 12:11] VITALS: BP 142/54
[2017-05-23 15:32] VITALS: BP 116/75
[2017-05-23] MEDS ORDERED: PHENYTOIN 100 MG/4 ML SUSPENSION UDCUP PO SCH (21:00)
== END 2017-05-23 17:30 | disposition home or self-care (01) | DRG 871 ==
LOC: EMS 13:14 → 6N 17:45
PROVIDERS: ADMIT Internal Medicine; ATTEND Internal Medicine
DX: A41.9 Sepsis, unspecified organism (principal); E43 Unspecified severe protein-calorie malnutrition; N39.0 Urinary tract infection, site not specified; G30.9 Alzheimer's disease, unspecified; I11.0 Hypertensive heart disease with heart failure; I50.9 Heart failure, unspecified; Z93.1 Gastrostomy status; F01.50 Vascular dementia, unspecified severity, without behavioral disturbance, psychotic disturbance, mood disturbance, and anxiety; E11.9 Type 2 diabetes mellitus without complications; E78.5 Hyperlipidemia, unspecified; G40.909 Epilepsy, unspecified, not intractable, without status epilepticus; E78.00 Pure hypercholesterolemia, unspecified; H54.41 Blindness, right eye, normal vision left eye; R13.10 Dysphagia, unspecified; F41.9 Anxiety disorder, unspecified; F02.80 Dementia in other diseases classified elsewhere, unspecified severity, without behavioral disturbance, psychotic disturbance, mood disturbance, and anxiety; Z16.24 Resistance to multiple antibiotics; Z86.73 Personal history of transient ischemic attack (TIA), and cerebral infarction without residual deficits; R62.7 Adult failure to thrive; Z79.899 Other long term (current) drug therapy; Z87.440 Personal history of urinary (tract) infections; Z79.82 Long term (current) use of aspirin; Z83.3 Family history of diabetes mellitus
CPT/HCPCS: 51701; 82962; 83605; 87040; 87081; 87086; 93005; 96361; 96365; 99285; J1644; J2543; J7030; J7040; J7050; J7060

== ENCOUNTER 2017-07-09 13:58 | Inpatient (IN) | payer MEDICARE, OTHER ==
[~2017-07-09] VITALS: Ht 147.3 cm; Wt 58.9 kg
[~2017-07-09 13:58] MED LIST changes: -ASPI-1061 PEG; +ASPI81TA33 PEG; +BUPR75 PEG; -BUPR75 PO; -CARB25TA3 GT; +FURO20 PEG; -FURO20 PO; +PHENL PEG; -PHENL PO
[2017-07-09 15:54] LABS: BASOPHILS % (AUTO) 0.2 % (0.0-2.0); HEMATOCRIT 33.4 % (36-46); HEMOGLOBIN 11.5 g/dL (12.0-16.0); LYMPHOCYTES # (AUTO) 2.2 K/uL (1.0-4.8); LYMPHOCYTES % (AUTO) 19.2 % (22.0-44.0); MEAN CORPUSCULAR HEMOGLOBIN 33.9 pg (26.0-34.0); MEAN CORPUSCULAR HGB CONC 34.4 G/dL (31.0-37.0); MEAN CORPUSCULAR VOLUME 99 fL (80-100); MONOCYTES # (AUTO) 0.5 K/uL (0.1-1.0); MONOCYTES % (AUTO) 4.2 % (2.0-9.0); NEUTROPHILS # (AUTO) 8.4 K/uL (1.8-7.7); NEUTROPHILS % (AUTO) 74.4 % (40.0-70.0); PLATELET COUNT (AUTO) 282 K/uL (150-450); RED BLOOD CELL COUNT(AUTO) 3.38 MIL/uL (4.00-5.20); WHITE BLOOD COUNT (AUTO) 11.4 K/uL (4.5-11.0)
[2017-07-09 16:08] LABS: CALCIUM, TOTAL 9.3 mg/dL (8.8-10.5); CREATININE 0.9 mg/dL (0.60-1.30); POTASSIUM 4.9 mmol/L (3.5-5.1)
[2017-07-09 16:19] LABS: BILIRUBIN,TOTAL 0.2 mg/dL (0.1-1.0)
[2017-07-09 16:34] LABS: LACTIC ACID 2.4 mmol/L (0.4-2.0)
[2017-07-09 17:21] LABS: APPEARANCE,URINE TURBID (CLEAR); GLUCOSE, URINE (UA) NEGATIVE (NEGATIVE); KETONES,URINE NEGATIVE (NEGATIVE); LEUKOCYTE ESTERASE ,URINE LARGE (NEGATIVE); OCCULT BLOOD,URINE SMALL (NEGATIVE); PROTEIN,URINE NEGATIVE (NEGATIVE)
[2017-07-09 17:42] LABS: WBC,URINE >100 /HPF (0-5)
[2017-07-09 17:44] LABS: SQUAMOUS EPITHELIAL CELL,UR Few /LPF (None Seen)
[2017-07-09] MEDS ORDERED: SODIUM CHLORIDE 0.9% 1,000 ML IV ONE (18:15)
[2017-07-09] MEDS ORDERED: CefTRIAXone 1 GM/DEXTROSE 50 ML IV ONE (18:15)
[2017-07-09 21:43] VITALS: BP 141/80
[2017-07-09] MEDS ORDERED: OxyCODONE HCL/ACETAMINOPHEN 5-325 MG TABLET PO PRN (22:00)
[2017-07-09] MEDS ORDERED: LORazepam 2 MG/ML VIAL IVP PRN (22:00)
[2017-07-09] MEDS ORDERED: ACETAMINOPHEN 325 MG TABLET PO PRN (22:00)
[2017-07-09] MEDS ORDERED: BISACODYL 10 MG RECTAL RECTAL SUPPOSITORY PR PRN (22:00)
[2017-07-09] MEDS ORDERED: MAGNESIUM HYDROXIDE SUSPENSION 30 ML UDCUP PO PRN (22:00)
[2017-07-09] MEDS ORDERED: DEXTROSE 50%-WATER 25 GM/50 ML SYRINGE IVP PRN (22:00)
[2017-07-09] MEDS ORDERED: DEXTROSE 5%-0.45% SODIUM CHL 1,000 ML IV ONE (22:00)
[2017-07-09] MEDS ORDERED: ALBUTEROL SULFATE 2.5 MG/0.5 ML NEB SOLUTION NEB PRN (22:00)
[2017-07-09] MEDS: PHENYTOIN 100 MG/4 ML SUSPENSION UDCUP PO SCH (22:30)
[2017-07-09 23:25] VITALS: BP 144/56
[2017-07-10] MEDS: HEPARIN SODIUM,PORCINE 5,000 UNITS/ML VIAL SQ SCH ×4 (00:18→22:45)
[2017-07-10 01:03] LABS: GLUCOSE,POINT OF CARE 119 MG/DL (70-110)
[2017-07-10 05:03] VITALS: BP 131/48
[2017-07-10 07:18] LABS: GLUCOSE,POINT OF CARE 101 MG/DL (70-110)
[2017-07-10 07:58] VITALS: BP 141/77
[2017-07-10] MEDS ORDERED: PANTOPRAZOLE SODIUM 40 MG DR TABLET PO SCH (09:00)
[2017-07-10] MEDS: PANTOPRAZOLE SODIUM 40 MG/VIAL IVP SCH (09:19)
[2017-07-10] MEDS: ASPIRIN 81 MG CHEWABLE TABLET PO SCH (09:19)
[2017-07-10] MEDS: DOCUSATE SODIUM 100 MG CAPSULE PO SCH ×2 (09:19→20:22)
[2017-07-10 11:35] VITALS: BP 147/74
[2017-07-10 11:38] LABS: GLUCOSE,POINT OF CARE 151 MG/DL (70-110)
[2017-07-10] MEDS: INSULIN REGULAR, HUMAN 100 UNITS/ML SQ PRN ×2 (11:44→18:25)
[2017-07-10] MEDS ORDERED: VANCOMYCIN HCL 1.25 GM in DEXTROSE 5%-WATER 250 ML IV ONE (16:00)
[2017-07-10 16:10] VITALS: BP 154/71
[2017-07-10] MEDS ORDERED: SODIUM CHLORIDE 0.9% 1,000 ML IV ONE (16:41)
[2017-07-10] MEDS ORDERED: INFLUENZA VIRUS VACCINE QVS 2017-18 (3YR+)/PF 60 MCG/0.5 ML SYRINGE IM ONE (17:15)
[2017-07-10 18:18] LABS: GLUCOSE,POINT OF CARE 144 MG/DL (70-110)
[2017-07-10 20:16] VITALS: BP 124/70
[2017-07-10] MEDS: ATORVASTATIN CALCIUM 20 MG TABLET PO SCH (20:22)
[2017-07-10] MEDS: PHENYTOIN 100 MG/4 ML SUSPENSION UDCUP PO SCH (20:22)
[2017-07-10] MEDS: CefTRIAXone 1 GM/DEXTROSE 50 ML IV SCH (20:22)
[2017-07-10 21:43] LABS: GLUCOSE,POINT OF CARE 135 MG/DL (70-110)
[2017-07-11] VITALS (7 sets, daily range): BP systolic 127–153; BP diastolic 68–93
[2017-07-11 06:52] LABS: ANION GAP 11 mmol/L (8-16); CALCIUM, TOTAL 8.5 mg/dL (8.8-10.5); CARBON DIOXIDE 25 mmol/L (22-29); CHLORIDE 101 mmol/L (98-107); CREATININE 0.86 mg/dL (0.60-1.30); GLOMERULAR FILTR. RATE CALC > 60 mL/min (>60); SODIUM SERUM 137 mmol/L (136-145); UREA NITROGEN, BLOOD 16 mg/dL (7-18)
[2017-07-11] MEDS ORDERED: SODIUM CHLORIDE 0.9% 250 ML IV ONE (08:09)
[2017-07-11] MEDS: PANTOPRAZOLE SODIUM 40 MG/VIAL IVP SCH (08:24)
[2017-07-11] MEDS: ASPIRIN 81 MG CHEWABLE TABLET PO SCH (08:24)
[2017-07-11] MEDS: VANCOMYCIN HCL 1.25 GM in DEXTROSE 5%-WATER 250 ML IV SCH (08:24)
[2017-07-11] MEDS: DOCUSATE SODIUM 100 MG CAPSULE PO SCH ×2 (08:24→20:25)
[2017-07-11] MEDS: HEPARIN SODIUM,PORCINE 5,000 UNITS/ML VIAL SQ SCH ×2 (08:24→16:58)
[2017-07-11 11:28] LABS: GLUCOSE,POINT OF CARE 147 MG/DL (70-110)
[2017-07-11] MEDS: INSULIN REGULAR, HUMAN 100 UNITS/ML SQ PRN ×2 (11:41→17:20)
[2017-07-11 18:11] LABS: BASOPHILS % (AUTO) 0.3 % (0.0-2.0); EOSINOPHILS % (AUTO) 4.7 % (1.0-6.0); HEMATOCRIT 32.6 % (36-46); HEMOGLOBIN 11.3 g/dL (12.0-16.0); MEAN CORPUSCULAR HEMOGLOBIN 34.1 pg (26.0-34.0); MEAN CORPUSCULAR HGB CONC 34.6 G/dL (31.0-37.0); MEAN CORPUSCULAR VOLUME 99 fL (80-100); MONOCYTES # (AUTO) 0.5 K/uL (0.1-1.0); MONOCYTES % (AUTO) 4.7 % (2.0-9.0); NEUTROPHILS % (AUTO) 60.3 % (40.0-70.0); PLATELET COUNT (AUTO) 271 K/uL (150-450); RED BLOOD CELL COUNT(AUTO) 3.31 MIL/uL (4.00-5.20); RED CELL DISTRIBUTION WIDTH 12.7 % (11.5-14.5); WHITE BLOOD COUNT (AUTO) 9.9 K/uL (4.5-11.0)
[2017-07-11 18:18] LABS: ANION GAP 10 mmol/L (8-16); CALCIUM, TOTAL 8.6 mg/dL (8.8-10.5); CARBON DIOXIDE 26 mmol/L (22-29); CHLORIDE 102 mmol/L (98-107); CREATININE 0.81 mg/dL (0.60-1.30); GLOMERULAR FILTR. RATE CALC > 60 mL/min (>60); POTASSIUM 4.1 mmol/L (3.5-5.1); SODIUM SERUM 138 mmol/L (136-145); UREA NITROGEN, BLOOD 16 mg/dL (7-18)
[2017-07-11 18:24] LABS: ALANINE AMINOTRANSFERASE 17 U/L (12-78); ALBUMIN 2.7 g/dL (3.4-5.0); ASPARTATE AMINOTRANSFERASE 20 U/L (15-37); BILIRUBIN,TOTAL 0.1 mg/dL (0.1-1.0); TOTAL PROTEIN, SERUM 8.3 g/dL (6.4-8.2)
[2017-07-11] MEDS ORDERED: TUBERCULIN, PURIFIED PROTEIN DERIVATIVE 5 TU/0.1 ML SYG ID ONE (18:30)
[2017-07-11 19:57] LABS: GLUCOSE COMMENT 1 Received Meds; GLUCOSE,POINT OF CARE 154 MG/DL (70-110)
[2017-07-11 19:57] LABS: GLUCOSE COMMENT 1 Received Meds; GLUCOSE,POINT OF CARE 154 MG/DL (70-110)
[2017-07-11] MEDS: ATORVASTATIN CALCIUM 20 MG TABLET PO SCH (20:24)
[2017-07-11] MEDS: PHENYTOIN 100 MG/4 ML SUSPENSION UDCUP PO SCH (20:24)
[2017-07-11] MEDS: CefTRIAXone 1 GM/DEXTROSE 50 ML IV SCH (20:25)
[2017-07-11 21:32] LABS: GLUCOSE,POINT OF CARE 122 MG/DL (70-110)
[2017-07-12] MEDS: HEPARIN SODIUM,PORCINE 5,000 UNITS/ML VIAL SQ SCH ×4 (00:15→23:33)
[2017-07-12 05:01] VITALS: BP 157/110
[2017-07-12] MEDS: INSULIN REGULAR, HUMAN 100 UNITS/ML SQ PRN ×3 (06:53→17:18)
[2017-07-12 07:09] VITALS: BP 145/96
[2017-07-12 07:38] LABS: ALANINE AMINOTRANSFERASE 24 U/L (12-78); ALBUMIN 3.1 g/dL (3.4-5.0); ANION GAP 10 mmol/L (8-16); ASPARTATE AMINOTRANSFERASE 25 U/L (15-37); BILIRUBIN,TOTAL 0.1 mg/dL (0.1-1.0); CALCIUM, TOTAL 8.8 mg/dL (8.8-10.5); CARBON DIOXIDE 26 mmol/L (22-29); CHLORIDE 102 mmol/L (98-107); CREATININE 0.86 mg/dL (0.60-1.30); GLOMERULAR FILTR. RATE CALC > 60 mL/min (>60); POTASSIUM 4.2 mmol/L (3.5-5.1); SODIUM SERUM 138 mmol/L (136-145); TOTAL PROTEIN, SERUM 8.8 g/dL (6.4-8.2); UREA NITROGEN, BLOOD 19 mg/dL (7-18)
[2017-07-12 07:41] LABS: BASOPHILS # (AUTO) 0.05 K/uL (0.00-0.20); BASOPHILS % (AUTO) 0.5 % (0.0-2.0); EOSINOPHILS # (AUTO) 0.51 K/uL (0.00-0.70); EOSINOPHILS % (AUTO) 4.33 % (1.0-6.0); HEMATOCRIT 36.3 % (36-46); HEMOGLOBIN 12.3 g/dL (12.0-16.0); LYMPHOCYTES # (AUTO) 3.9 K/uL (1.0-4.8); LYMPHOCYTES % (AUTO) 32.9 % (22.0-44.0); MEAN CORPUSCULAR HEMOGLOBIN 33.6 pg (26.0-34.0); MEAN CORPUSCULAR HGB CONC 33.8 G/dL (31.0-37.0); MEAN CORPUSCULAR VOLUME 100 fL (80-100); MONOCYTES # (AUTO) 0.8 K/uL (0.1-1.0); MONOCYTES % (AUTO) 6.8 % (2.0-9.0); NEUTROPHILS # (AUTO) 6.6 K/uL (1.8-7.7); NEUTROPHILS % (AUTO) 55.6 % (40.0-70.0); PLATELET COUNT (AUTO) 245 K/uL (150-450); RED BLOOD CELL COUNT(AUTO) 3.64 MIL/uL (4.00-5.20); RED CELL DISTRIBUTION WIDTH 12.8 % (11.5-14.5); WHITE BLOOD COUNT (AUTO) 11.9 K/uL (4.5-11.0)
[2017-07-12] MEDS: VANCOMYCIN HCL 1.25 GM in DEXTROSE 5%-WATER 250 ML IV SCH (07:55)
[2017-07-12] MEDS: PANTOPRAZOLE SODIUM 40 MG/VIAL IVP SCH (07:55)
[2017-07-12] MEDS: DOCUSATE SODIUM 100 MG CAPSULE PO SCH ×2 (07:56→20:19)
[2017-07-12] MEDS: ASPIRIN 81 MG CHEWABLE TABLET PO SCH (07:56)
[2017-07-12 10:22] LABS: GLUCOSE,POINT OF CARE 112 MG/DL (70-110)
[2017-07-12 11:40] VITALS: BP 158/87
[2017-07-12] MEDS ORDERED: SODIUM CHLORIDE 0.9% 1,000 ML IV ONE (12:30)
[2017-07-12] MEDS: LISINOPRIL 5 MG TABLET PEG SCH (15:20)
[2017-07-12 16:01] VITALS: BP 156/91
[2017-07-12 20:16] VITALS: BP 159/95
[2017-07-12] MEDS: PHENYTOIN 100 MG/4 ML SUSPENSION UDCUP PEG SCH (20:20)
[2017-07-12] MEDS: CefTRIAXone 1 GM/DEXTROSE 50 ML IV SCH (20:20)
[2017-07-12] MEDS: ATORVASTATIN CALCIUM 20 MG TABLET PO SCH (20:20)
[2017-07-12] MEDS ORDERED: SODIUM CHLORIDE 3% 15 ML NEB SOLUTION NEB ONE (20:25)
[2017-07-12] MEDS ORDERED: SODIUM CL IRRIG SOLN BOTTLE 250 ML IRRIG ONE (20:45)
[2017-07-12 22:44] VITALS: BP 154/75
[2017-07-13 01:48] LABS: GLUCOSE,POINT OF CARE 165 MG/DL (70-110)
[2017-07-13] MEDS ORDERED: 0.9% SODIUM CHLORIDE 5 ML NEB SOLUTION NEB ONE (04:54)
[2017-07-13 05:03] VITALS: BP 149/89
[2017-07-13] MEDS: INSULIN REGULAR, HUMAN 100 UNITS/ML SQ PRN ×4 (05:54→22:00)
[2017-07-13 07:03] LABS: ANION GAP 11 mmol/L (8-16); CALCIUM, TOTAL 8.6 mg/dL (8.8-10.5); CARBON DIOXIDE 26 mmol/L (22-29); CHLORIDE 104 mmol/L (98-107); CREATININE 0.82 mg/dL (0.60-1.30); GLOMERULAR FILTR. RATE CALC > 60 mL/min (>60); SODIUM SERUM 141 mmol/L (136-145); UREA NITROGEN, BLOOD 21 mg/dL (7-18)
[2017-07-13 07:28] VITALS: BP 149/84
[2017-07-13] MEDS: ASPIRIN 81 MG CHEWABLE TABLET PEG SCH (08:55)
[2017-07-13] MEDS: SitaGLIPtin PHOSPHATE 50 MG TABLET PEG SCH (08:55)
[2017-07-13] MEDS: VANCOMYCIN HCL 1.25 GM in DEXTROSE 5%-WATER 250 ML IV SCH (08:55)
[2017-07-13] MEDS: FUROSEMIDE 20 MG TABLET PEG SCH (08:55)
[2017-07-13] MEDS: HEPARIN SODIUM,PORCINE 5,000 UNITS/ML VIAL SQ SCH ×2 (08:55→15:14)
[2017-07-13] MEDS: LISINOPRIL 5 MG TABLET PEG SCH (08:55)
[2017-07-13] MEDS: DOCUSATE SODIUM 100 MG CAPSULE PO SCH ×2 (08:56→20:02)
[2017-07-13] MEDS: PANTOPRAZOLE SODIUM 40 MG/VIAL IVP SCH (08:56)
[2017-07-13 11:42] VITALS: BP 155/66
[2017-07-13 15:32] LABS: GLUCOSE COMMENT 1 Received Meds; GLUCOSE,POINT OF CARE 199 MG/DL (70-110)
[2017-07-13 15:45] VITALS: BP 147/76
[2017-07-13] MEDS: ATORVASTATIN CALCIUM 20 MG TABLET PO SCH (20:02)
[2017-07-13] MEDS: PHENYTOIN 100 MG/4 ML SUSPENSION UDCUP PEG SCH (20:02)
[2017-07-13 20:03] VITALS: BP 135/73
[2017-07-13] MEDS: CefTRIAXone 1 GM/DEXTROSE 50 ML IV SCH (20:03)
[2017-07-14 00:01] VITALS: BP 133/72
[2017-07-14] MEDS: HEPARIN SODIUM,PORCINE 5,000 UNITS/ML VIAL SQ SCH ×4 (00:15→23:44)
[2017-07-14 04:30] VITALS: BP 141/91
[2017-07-14] MEDS: INSULIN REGULAR, HUMAN 100 UNITS/ML SQ PRN (05:41)
[2017-07-14 06:16] LABS: ANION GAP 9 mmol/L (8-16); CALCIUM, TOTAL 8.4 mg/dL (8.8-10.5); CARBON DIOXIDE 27 mmol/L (22-29); CHLORIDE 103 mmol/L (98-107); CREATININE 0.85 mg/dL (0.60-1.30); GLOMERULAR FILTR. RATE CALC > 60 mL/min (>60); POTASSIUM 4.3 mmol/L (3.5-5.1); SODIUM SERUM 139 mmol/L (136-145); UREA NITROGEN, BLOOD 25 mg/dL (7-18)
[2017-07-14 06:53] LABS: GLUCOSE,POINT OF CARE 152 MG/DL (70-110)
[2017-07-14 06:53] LABS: GLUCOSE,POINT OF CARE 159 MG/DL (70-110)
[2017-07-14 06:53] LABS: GLUCOSE,POINT OF CARE 146 MG/DL (70-110)
[2017-07-14 08:04] VITALS: BP 126/66
[2017-07-14] MEDS: PANTOPRAZOLE SODIUM 40 MG/VIAL IVP SCH (08:22)
[2017-07-14] MEDS: VANCOMYCIN HCL 1.25 GM in DEXTROSE 5%-WATER 250 ML IV SCH (08:22)
[2017-07-14] MEDS: LISINOPRIL 5 MG TABLET PEG SCH (08:23)
[2017-07-14] MEDS: DOCUSATE SODIUM 100 MG CAPSULE PO SCH ×2 (08:23→20:30)
[2017-07-14] MEDS: SitaGLIPtin PHOSPHATE 50 MG TABLET PEG SCH (08:23)
[2017-07-14] MEDS: ASPIRIN 81 MG CHEWABLE TABLET PEG SCH (08:23)
[2017-07-14] MEDS: FUROSEMIDE 20 MG TABLET PEG SCH (08:23)
[2017-07-14 11:20] VITALS: BP 158/62
[2017-07-14 16:00] VITALS: BP 152/89
[2017-07-14 20:00] VITALS: BP 155/97
[2017-07-14] MEDS: ATORVASTATIN CALCIUM 20 MG TABLET PO SCH (20:30)
[2017-07-14] MEDS: PHENYTOIN 100 MG/4 ML SUSPENSION UDCUP PEG SCH (20:30)
[2017-07-14] MEDS: CefTRIAXone 1 GM/DEXTROSE 50 ML IV SCH (20:30)
[2017-07-15] VITALS (7 sets, daily range): BP systolic 123–171; BP diastolic 69–116
[2017-07-15 06:38] LABS: GLUCOSE,POINT OF CARE 112 MG/DL (70-110)
[2017-07-15 06:43] LABS: GLUCOSE COMMENT 1 Received Meds; GLUCOSE,POINT OF CARE 160 MG/DL (70-110)
[2017-07-15 06:43] LABS: GLUCOSE COMMENT 1 Received Meds; GLUCOSE,POINT OF CARE 155 MG/DL (70-110)
[2017-07-15 06:43] LABS: GLUCOSE,POINT OF CARE 101 MG/DL (70-110)
[2017-07-15 06:48] LABS: GLUCOSE,POINT OF CARE 111 MG/DL (70-110)
[2017-07-15 06:48] LABS: GLUCOSE COMMENT 1 Received Meds; GLUCOSE,POINT OF CARE 142 MG/DL (70-110)
[2017-07-15 06:48] LABS: GLUCOSE,POINT OF CARE 174 MG/DL (70-110)
[2017-07-15 06:48] LABS: GLUCOSE,POINT OF CARE 135 MG/DL (70-110)
[2017-07-15 06:54] LABS: ANION GAP 9 mmol/L (8-16); CALCIUM, TOTAL 8.6 mg/dL (8.8-10.5); CARBON DIOXIDE 27 mmol/L (22-29); CHLORIDE 102 mmol/L (98-107); CREATININE 0.68 mg/dL (0.60-1.30); GLOMERULAR FILTR. RATE CALC > 60 mL/min (>60); POTASSIUM 3.9 mmol/L (3.5-5.1); SODIUM SERUM 138 mmol/L (136-145); UREA NITROGEN, BLOOD 21 mg/dL (7-18)
[2017-07-15] MEDS: SitaGLIPtin PHOSPHATE 50 MG TABLET PEG SCH (07:48)
[2017-07-15] MEDS: PANTOPRAZOLE SODIUM 40 MG/VIAL IVP SCH (07:49)
[2017-07-15] MEDS: LISINOPRIL 5 MG TABLET PEG SCH (07:49)
[2017-07-15] MEDS: FUROSEMIDE 20 MG TABLET PEG SCH (07:49)
[2017-07-15] MEDS: DOCUSATE SODIUM 100 MG CAPSULE PO SCH ×2 (07:49→20:56)
[2017-07-15] MEDS: ASPIRIN 81 MG CHEWABLE TABLET PEG SCH (07:49)
[2017-07-15] MEDS: VANCOMYCIN HCL 1.25 GM in DEXTROSE 5%-WATER 250 ML IV SCH (07:49)
[2017-07-15] MEDS: HEPARIN SODIUM,PORCINE 5,000 UNITS/ML VIAL SQ SCH ×3 (07:51→23:45)
[2017-07-15] MEDS ORDERED: SODIUM CHLORIDE 0.9% 250 ML IV ONE (07:52)
[2017-07-15 12:08] LABS: GLUCOSE,POINT OF CARE 197 MG/DL (70-110)
[2017-07-15] MEDS: INSULIN REGULAR, HUMAN 100 UNITS/ML SQ PRN ×3 (12:25→20:57)
[2017-07-15 17:13] LABS: GLUCOSE,POINT OF CARE 162 MG/DL (70-110)
[2017-07-15] MEDS: CefTRIAXone 1 GM/DEXTROSE 50 ML IV SCH (20:56)
[2017-07-15] MEDS: ATORVASTATIN CALCIUM 20 MG TABLET PO SCH (20:56)
[2017-07-15] MEDS: PHENYTOIN 100 MG/4 ML SUSPENSION UDCUP PEG SCH (20:57)
[2017-07-15 23:33] LABS: GLUCOSE,POINT OF CARE 173 MG/DL (70-110)
[2017-07-16 05:08] VITALS: BP 117/77
[2017-07-16 06:15] LABS: ANION GAP 7 mmol/L (8-16); CALCIUM, TOTAL 8.4 mg/dL (8.8-10.5); CARBON DIOXIDE 30 mmol/L (22-29); CHLORIDE 101 mmol/L (98-107); GLOMERULAR FILTR. RATE CALC > 60 mL/min (>60); POTASSIUM 4.4 mmol/L (3.5-5.1); SODIUM SERUM 138 mmol/L (136-145); UREA NITROGEN, BLOOD 24 mg/dL (7-18)
[2017-07-16] MEDS: INSULIN REGULAR, HUMAN 100 UNITS/ML SQ PRN ×3 (06:16→17:23)
[2017-07-16 07:26] VITALS: BP 116/42
[2017-07-16] MEDS: HEPARIN SODIUM,PORCINE 5,000 UNITS/ML VIAL SQ SCH ×3 (08:59→23:50)
[2017-07-16] MEDS: PANTOPRAZOLE SODIUM 40 MG/VIAL IVP SCH (08:59)
[2017-07-16] MEDS: VANCOMYCIN HCL 1.25 GM in DEXTROSE 5%-WATER 250 ML IV SCH (08:59)
[2017-07-16] MEDS: ASPIRIN 81 MG CHEWABLE TABLET PEG SCH (08:59)
[2017-07-16] MEDS: LISINOPRIL 5 MG TABLET PEG SCH (09:00)
[2017-07-16] MEDS: SitaGLIPtin PHOSPHATE 50 MG TABLET PEG SCH (09:00)
[2017-07-16] MEDS: FUROSEMIDE 20 MG TABLET PEG SCH (09:00)
[2017-07-16 10:02] LABS: GLUCOSE,POINT OF CARE 165 MG/DL (70-110)
[2017-07-16] MEDS: DOCUSATE SODIUM 100 MG CAPSULE PO SCH ×2 (10:47→20:32)
[2017-07-16 11:44] VITALS: BP 119/51
[2017-07-16 15:48] VITALS: BP 110/52
[2017-07-16 17:32] LABS: GLUCOSE COMMENT 1 Received Meds; GLUCOSE,POINT OF CARE 156 MG/DL (70-110)
[2017-07-16 19:12] VITALS: BP 138/74
[2017-07-16] MEDS: PHENYTOIN 100 MG/4 ML SUSPENSION UDCUP PEG SCH (20:32)
[2017-07-16] MEDS: ATORVASTATIN CALCIUM 20 MG TABLET PO SCH (20:33)
[2017-07-16] MEDS: CefTRIAXone 1 GM/DEXTROSE 50 ML IV SCH (20:39)
[2017-07-16 22:02] LABS: GLUCOSE,POINT OF CARE 95 MG/DL (70-110)
[2017-07-16 23:32] VITALS: BP 131/59
[2017-07-17 05:48] VITALS: BP 126/59
[2017-07-17] MEDS: INSULIN REGULAR, HUMAN 100 UNITS/ML SQ PRN ×2 (06:20→18:09)
[2017-07-17 06:42] LABS: ANION GAP 7 mmol/L (8-16); CALCIUM, TOTAL 8.8 mg/dL (8.8-10.5); CARBON DIOXIDE 28 mmol/L (22-29); CHLORIDE 102 mmol/L (98-107); CREATININE 0.76 mg/dL (0.60-1.30); GLOMERULAR FILTR. RATE CALC > 60 mL/min (>60); POTASSIUM 4.3 mmol/L (3.5-5.1); SODIUM SERUM 137 mmol/L (136-145); UREA NITROGEN, BLOOD 28 mg/dL (7-18)
[2017-07-17 07:55] VITALS: BP 147/66
[2017-07-17] MEDS: HEPARIN SODIUM,PORCINE 5,000 UNITS/ML VIAL SQ SCH ×2 (08:03→16:30)
[2017-07-17] MEDS: SitaGLIPtin PHOSPHATE 50 MG TABLET PEG SCH (08:04)
[2017-07-17] MEDS: ASPIRIN 81 MG CHEWABLE TABLET PEG SCH (08:04)
[2017-07-17] MEDS: PANTOPRAZOLE SODIUM 40 MG/VIAL IVP SCH (08:04)
[2017-07-17] MEDS: LISINOPRIL 5 MG TABLET PEG SCH (08:05)
[2017-07-17] MEDS: DOCUSATE SODIUM 100 MG CAPSULE PO SCH (08:05)
[2017-07-17] MEDS: FUROSEMIDE 20 MG TABLET PEG SCH (08:05)
[2017-07-17 11:18] VITALS: BP 136/66
[2017-07-17 11:18] LABS: GLUCOSE,POINT OF CARE 148 MG/DL (70-110)
[2017-07-17 11:18] LABS: GLUCOSE COMMENT 1 Received Meds; GLUCOSE,POINT OF CARE 161 MG/DL (70-110)
[2017-07-17 11:18] LABS: GLUCOSE,POINT OF CARE 125 MG/DL (70-110)
[2017-07-17] MEDS ORDERED: SODIUM CHLORIDE 0.9% 1,000 ML IV ONE ×2 (11:26→12:00)
[2017-07-17] MEDS ORDERED: PROPOFOL 1% 20 ML VIAL IVP ONE (12:00)
[2017-07-17] MEDS ORDERED: METOPROLOL TARTRATE 5 MG/5 ML VIAL IVP ONE (12:00)
[2017-07-17 16:15] VITALS: BP 160/101
[2017-07-17 17:53] LABS: GLUCOSE,POINT OF CARE 149 MG/DL (70-110)
[2017-07-17 19:29] VITALS: BP 132/80
[2017-07-18] MEDS ORDERED: POVIDONE-IODINE 10% 120 ML SOLUTION TP SCH (09:00)
[2017-07-18] MEDS ORDERED: HYDROGEN PEROXIDE 473 ML SOLUTION TP SCH (09:00)
== END 2017-07-17 20:10 | DRG 393 ==
LOC: EMS 16:10 → 6N 19:47
PROVIDERS: ADMIT Internal Medicine; ATTEND Internal Medicine
PROC: 3E0234Z Introduction of Serum, Toxoid and Vaccine into Muscle, Percutaneous Approach (ICD-10-PCS; 2017-07-10)
PROC: 0DP6XUZ Removal of Feeding Device from Stomach, External Approach (ICD-10-PCS; 2017-07-17)
PROC: 0DH63UZ Insertion of Feeding Device into Stomach, Percutaneous Approach (ICD-10-PCS; principal; 2017-07-17 13:00)
DX: K94.23 Gastrostomy malfunction (principal); A41.9 Sepsis, unspecified organism; E44.0 Moderate protein-calorie malnutrition; R13.10 Dysphagia, unspecified; I11.0 Hypertensive heart disease with heart failure; I50.9 Heart failure, unspecified; E11.9 Type 2 diabetes mellitus without complications; B95.7 Other staphylococcus as the cause of diseases classified elsewhere; N39.0 Urinary tract infection, site not specified; B96.20 Unspecified Escherichia coli [E. coli] as the cause of diseases classified elsewhere; R56.9 Unspecified convulsions; E78.5 Hyperlipidemia, unspecified; F02.80 Dementia in other diseases classified elsewhere, unspecified severity, without behavioral disturbance, psychotic disturbance, mood disturbance, and anxiety; G30.9 Alzheimer's disease, unspecified; H54.61 Unqualified visual loss, right eye, normal vision left eye; I70.0 Atherosclerosis of aorta; R62.7 Adult failure to thrive; Y83.3 Surgical operation with formation of external stoma as the cause of abnormal reaction of the patient, or of later complication, without mention of misadventure at the time of the procedure; Z20.1 Contact with and (suspected) exposure to tuberculosis; Z16.24 Resistance to multiple antibiotics; Z86.73 Personal history of transient ischemic attack (TIA), and cerebral infarction without residual deficits; Z23 Encounter for immunization; Z86.79 Personal history of other diseases of the circulatory system; Z99.3 Dependence on wheelchair; Z79.899 Other long term (current) drug therapy; Z68.27 Body mass index [BMI] 27.0-27.9, adult; Y92.89 Other specified places as the place of occurrence of the external cause; Y93.89 Activity, other specified; Y99.8 Other external cause status; Z83.3 Family history of diabetes mellitus
CPT/HCPCS: 51702; 82962; 83605; 86480; 87015; 87040; 87086; 90471; 94640; 94799; 96365; 99285; C9113; J0696; J1644; J2704; J3370; J3490; J7030; J7050; J7060

== ENCOUNTER 2017-08-14 17:42 | Inpatient (IN) | payer MEDICARE, OTHER ==
[~2017-08-14] VITALS: Ht 157.5 cm; Wt 59.0 kg
[2017-08-14] MEDS ORDERED: SODIUM CHLORIDE 0.9% 1,000 ML IV ONE ×2 (18:30→20:15)
[2017-08-14] MEDS ORDERED: ACETAMINOPHEN 325 MG/ISO-OSM 32.5 ML IV ONE (18:30)
[2017-08-14] MEDS ORDERED: *CLINICAL-CEFEPIME DOSING CLINICAL ONE ×2 (18:45)
[2017-08-14] MEDS ORDERED: VANCOMYCIN HCL 1 GM/D5% WATER 200 ML IV ONE (19:00)
[2017-08-14] MEDS ORDERED: CEFEPIME HCL 2 GM in DEXTROSE 5%-WATER 50 ML IV ONE (19:00)
[2017-08-14 19:07] LABS: BASOPHILS % (AUTO) 1.5 % (0.0-2.0); EOSINOPHILS % (AUTO) 0.7 % (1.0-6.0); HEMATOCRIT 34.1 % (36-46); HEMOGLOBIN 11.8 g/dL (12.0-16.0); LYMPHOCYTES # (AUTO) 2.8 K/uL (1.0-4.8); LYMPHOCYTES % (AUTO) 23.7 % (22.0-44.0); MEAN CORPUSCULAR HEMOGLOBIN 34.4 pg (26.0-34.0); MEAN CORPUSCULAR HGB CONC 34.6 G/dL (31.0-37.0); MEAN CORPUSCULAR VOLUME 99 fL (80-100); MONOCYTES # (AUTO) 0.6 K/uL (0.1-1.0); NEUTROPHILS # (AUTO) 8.3 K/uL (1.8-7.7); NEUTROPHILS % (AUTO) 69.1 % (40.0-70.0); PLATELET COUNT (AUTO) 135 K/uL (150-450); RED BLOOD CELL COUNT(AUTO) 3.43 MIL/uL (4.00-5.20)
[2017-08-14 19:11] LABS: CALCIUM, TOTAL 8.2 mg/dL (8.8-10.5); CREATININE 1.35 mg/dL (0.60-1.30); POTASSIUM 4.7 mmol/L (3.5-5.1)
[2017-08-14 19:12] LABS: INFLUENZA TYPE B NEGATIVE FOR TYPE B (NEGATIVE)
[2017-08-14 19:17] LABS: ALBUMIN 2.4 g/dL (3.4-5.0); TOTAL PROTEIN, SERUM 7.2 g/dL (6.4-8.2)
[2017-08-14 19:36] LABS: BILIRUBIN,TOTAL 0.2 mg/dL (0.1-1.0)
[2017-08-14] MEDS ORDERED: ASPIRIN 325 MG TABLET GT ONE (19:45)
[2017-08-14] MEDS ORDERED: ACETAMINOPHEN 650 MG/20.3 ML SOLUTION UDCUP PEG PRN (20:00)
[2017-08-14] MEDS ORDERED: MAGNESIUM HYDROXIDE SUSPENSION 30 ML UDCUP PEG PRN (20:00)
[2017-08-14] MEDS ORDERED: IPRATROPIUM BROMIDE 0.5 MG/2.5 ML NEB SOLUTION NEB PRN (20:00)
[2017-08-14] MEDS ORDERED: ALBUTEROL SULFATE 2.5 MG/0.5 ML NEB SOLUTION NEB PRN (20:00)
[2017-08-14] MEDS ORDERED: ONDANSETRON HCL 4 MG/2 ML VIAL IVP PRN (20:00)
[2017-08-14] MEDS ORDERED: BISACODYL 10 MG RECTAL RECTAL SUPPOSITORY PR PRN (20:00)
[2017-08-14] MEDS ORDERED: DEXTROSE 50%-WATER 25 GM/50 ML SYRINGE IVP PRN (20:15)
[2017-08-14] MEDS ORDERED: PHENYLEPHRINE 200 MG/D5%-WATER 250 ML IV PRN (20:20)
[2017-08-14 21:00] LABS: LACTIC ACID 2.3 mmol/L (0.4-2.0)
[2017-08-14 21:19] LABS: REFLEX LACTIC ACID? YES YES
[2017-08-14 22:25] LABS: APPEARANCE,URINE CLOUDY (CLEAR); GLUCOSE, URINE (UA) NEGATIVE (NEGATIVE); KETONES,URINE NEGATIVE (NEGATIVE); LEUKOCYTE ESTERASE ,URINE SMALL (NEGATIVE); OCCULT BLOOD,URINE NEGATIVE (NEGATIVE); PROTEIN,URINE NEGATIVE (NEGATIVE)
[2017-08-14 22:30] VITALS: BP 94/61
[2017-08-14 22:32] LABS: SQUAMOUS EPITHELIAL CELL,UR Few /LPF (None Seen)
[2017-08-14 22:35] LABS: RBC,URINE 0-2 /HPF (0-2)
[2017-08-14] MEDS: PIPERACILLIN SODIUM/TAZOBACTAM 2.25 GM in DEXTROSE 5%-WATER 50 ML IV SCH (23:32)
[2017-08-14] MEDS: HEPARIN SODIUM,PORCINE 5,000 UNITS/ML VIAL SQ SCH (23:32)
[2017-08-14] MEDS: PHENYTOIN 100 MG/4 ML SUSPENSION UDCUP PEG SCH (23:32)
[2017-08-14] MEDS: SODIUM CHLORIDE 0.45% 1,000 ML IV SCH (23:45)
[2017-08-14] MEDS: MetroNIDAZOLE 500 MG/NACL 100 ML IV SCH (23:45)
[2017-08-15] VITALS: BP 93/56
[2017-08-15 04:00] VITALS: BP 100/60
[2017-08-15] MEDS: PIPERACILLIN SODIUM/TAZOBACTAM 2.25 GM in DEXTROSE 5%-WATER 50 ML IV SCH ×3 (04:08→21:22)
[2017-08-15] MEDS: MetroNIDAZOLE 500 MG/NACL 100 ML IV SCH ×3 (05:31→23:28)
[2017-08-15] MEDS: INSULIN REGULAR, HUMAN 100 UNITS/ML SQ PRN (05:32)
[2017-08-15 06:00] LABS: HEMOGLOBIN A1C 8.1 % (4.5-6.2)
[2017-08-15 06:23] LABS: BASOPHILS % (AUTO) 0.5 % (0.0-2.0); EOSINOPHILS % (AUTO) 1.8 % (1.0-6.0); HEMATOCRIT 26.8 % (36-46); HEMOGLOBIN 9.2 g/dL (12.0-16.0); LYMPHOCYTES # (AUTO) 1.8 K/uL (1.0-4.8); LYMPHOCYTES % (AUTO) 18.9 % (22.0-44.0); MEAN CORPUSCULAR HEMOGLOBIN 34.3 pg (26.0-34.0); MEAN CORPUSCULAR HGB CONC 34.2 G/dL (31.0-37.0); MEAN CORPUSCULAR VOLUME 100 fL (80-100); MONOCYTES # (AUTO) 0.5 K/uL (0.1-1.0); MONOCYTES % (AUTO) 4.9 % (2.0-9.0); NEUTROPHILS # (AUTO) 6.9 K/uL (1.8-7.7); NEUTROPHILS % (AUTO) 73.9 % (40.0-70.0); PLATELET COUNT (AUTO) 96 K/uL (150-450); RED BLOOD CELL COUNT(AUTO) 2.68 MIL/uL (4.00-5.20); RED CELL DISTRIBUTION WIDTH 13.4 % (11.5-14.5); WHITE BLOOD COUNT (AUTO) 9.3 K/uL (4.5-11.0)
[2017-08-15 06:48] LABS: GLUCOSE COMMENT 1 Received Meds; GLUCOSE,POINT OF CARE 154 MG/DL (70-110)
[2017-08-15 06:48] LABS: GLUCOSE,POINT OF CARE 130 MG/DL (70-110)
[2017-08-15 06:58] LABS: ANION GAP 11 mmol/L (8-16); CALCIUM, TOTAL 6.9 mg/dL (8.8-10.5); CARBON DIOXIDE 22 mmol/L (22-29); CHLORIDE 111 mmol/L (98-107); CREATINE KINASE MB 3.8 ng/mL (0-5); CREATINE KINASE, TOTAL 368 U/L (26-192); CREATININE 1.01 mg/dL (0.60-1.30); GLOMERULAR FILTR. RATE CALC 52 mL/min (>60); POTASSIUM 3.6 mmol/L (3.5-5.1); SODIUM SERUM 144 mmol/L (136-145); THYROID STIMULATING HORMONE 1.46 uIU/mL (0.36-3.74); UREA NITROGEN, BLOOD 69 mg/dL (7-18)
[2017-08-15 08:00] VITALS: BP 100/63
[2017-08-15 08:09] LABS: LACTIC ACID < 0.3 mmol/L (0.4-2.0)
[2017-08-15] MEDS: ASPIRIN 81 MG EC TABLET PEG SCH (08:12)
[2017-08-15] MEDS: VANCOMYCIN HCL 500 MG in DEXTROSE 5%-WATER 100 ML IV SCH ×2 (08:12→19:42)
[2017-08-15] MEDS: HEPARIN SODIUM,PORCINE 5,000 UNITS/ML VIAL SQ SCH ×2 (08:13→21:21)
[2017-08-15 08:18] LABS: RBC MORPHOLOGY COMMENT ABNORMAL RBC MORPH
[2017-08-15] MEDS ORDERED: VANCOMYCIN HCL 1 GM/D5% WATER 200 ML IV SCH (09:00)
[2017-08-15] MEDS: SODIUM CHLORIDE 0.45% 1,000 ML IV SCH (11:07)
[2017-08-15 12:00] VITALS: BP 89/48
[2017-08-15 16:00] VITALS: BP 94/50
[2017-08-15 20:00] VITALS: BP 96/48
[2017-08-15] MEDS: PHENYTOIN 100 MG/4 ML SUSPENSION UDCUP PEG SCH (21:22)
[2017-08-16] VITALS (7 sets, daily range): BP systolic 98–127; BP diastolic 55–71
[2017-08-16] MEDS ORDERED: SODIUM CHLORIDE 0.9% 250 ML IV ONE (01:40)
[2017-08-16 02:17] LABS: GLUCOSE,POINT OF CARE 123 MG/DL (70-110)
[2017-08-16 02:17] LABS: GLUCOSE,POINT OF CARE 127 MG/DL (70-110)
[2017-08-16 02:17] LABS: GLUCOSE COMMENT 1 Received Meds; GLUCOSE,POINT OF CARE 128 MG/DL (70-110)
[2017-08-16] MEDS: PIPERACILLIN SODIUM/TAZOBACTAM 2.25 GM in DEXTROSE 5%-WATER 50 ML IV SCH ×3 (04:40→21:09)
[2017-08-16 04:54] LABS: BASOPHILS # (AUTO) 0.04 K/uL (0.00-0.20); BASOPHILS % (AUTO) 0.5 % (0.0-2.0); EOSINOPHILS # (AUTO) 0.28 K/uL (0.00-0.70); EOSINOPHILS % (AUTO) 3.13 % (1.0-6.0); HEMATOCRIT 26.5 % (36-46); HEMOGLOBIN 8.7 g/dL (12.0-16.0); LYMPHOCYTES # (AUTO) 1.1 K/uL (1.0-4.8); LYMPHOCYTES % (AUTO) 12.2 % (22.0-44.0); MEAN CORPUSCULAR HEMOGLOBIN 33.4 pg (26.0-34.0); MEAN CORPUSCULAR HGB CONC 32.8 G/dL (31.0-37.0); MEAN CORPUSCULAR VOLUME 102 fL (80-100); MONOCYTES # (AUTO) 0.5 K/uL (0.1-1.0); MONOCYTES % (AUTO) 5.2 % (2.0-9.0); NEUTROPHILS # (AUTO) 7.2 K/uL (1.8-7.7); PLATELET COUNT (AUTO) 96 K/uL (150-450); RED BLOOD CELL COUNT(AUTO) 2.61 MIL/uL (4.00-5.20); RED CELL DISTRIBUTION WIDTH 13.4 % (11.5-14.5); WHITE BLOOD COUNT (AUTO) 9.1 K/uL (4.5-11.0)
[2017-08-16 05:12] LABS: ANION GAP 6 mmol/L (8-16); CALCIUM, TOTAL 7.3 mg/dL (8.8-10.5); CARBON DIOXIDE 24 mmol/L (22-29); CHLORIDE 110 mmol/L (98-107); CREATININE 0.74 mg/dL (0.60-1.30); GLOMERULAR FILTR. RATE CALC > 60 mL/min (>60); POTASSIUM 3.3 mmol/L (3.5-5.1); SODIUM SERUM 140 mmol/L (136-145); UREA NITROGEN, BLOOD 44 mg/dL (7-18)
[2017-08-16 05:46] LABS: RBC MORPHOLOGY COMMENT ABNORMAL RBC MORPH
[2017-08-16] MEDS: MetroNIDAZOLE 500 MG/NACL 100 ML IV SCH ×3 (06:10→22:59)
[2017-08-16 07:07] LABS: GLUCOSE,POINT OF CARE 110 MG/DL (70-110)
[2017-08-16] MEDS: HEPARIN SODIUM,PORCINE 5,000 UNITS/ML VIAL SQ SCH ×2 (08:29→19:59)
[2017-08-16] MEDS: ASPIRIN 81 MG EC TABLET PEG SCH (08:29)
[2017-08-16] MEDS: VANCOMYCIN HCL 500 MG in DEXTROSE 5%-WATER 100 ML IV SCH ×2 (08:29→19:59)
[2017-08-16] MEDS ORDERED: POTASSIUM CHLORIDE 10% 40 MEQ/30 ML LIQUID UDCUP PEG ONE (09:00)
[2017-08-16] MEDS ORDERED: SODIUM CHLORIDE 0.45% 1,000 ML IV ONE (09:00)
[2017-08-16] MEDS ORDERED: POTASSIUM CHLORIDE 10 MEQ ER TABLET PO ONE (09:00)
[2017-08-16] MEDS: INSULIN REGULAR, HUMAN 100 UNITS/ML SQ PRN ×3 (12:34→23:26)
[2017-08-16] MEDS: PHENYTOIN 100 MG/4 ML SUSPENSION UDCUP PEG SCH (20:00)
[2017-08-16 21:17] LABS: GLUCOSE,POINT OF CARE 162 MG/DL (70-110)
[2017-08-16 21:18] LABS: GLUCOSE COMMENT 1 Received Meds; GLUCOSE,POINT OF CARE 151 MG/DL (70-110)
[2017-08-17] MEDS: PIPERACILLIN SODIUM/TAZOBACTAM 2.25 GM in DEXTROSE 5%-WATER 50 ML IV SCH ×2 (04:02→12:57)
[2017-08-17 04:37] VITALS: BP 121/72
[2017-08-17] MEDS: MetroNIDAZOLE 500 MG/NACL 100 ML IV SCH ×2 (05:41→14:02)
[2017-08-17] MEDS: INSULIN REGULAR, HUMAN 100 UNITS/ML SQ PRN ×2 (05:47→11:50)
[2017-08-17 06:43] LABS: GLUCOSE COMMENT 1 Received Meds; GLUCOSE,POINT OF CARE 169 MG/DL (70-110)
[2017-08-17 06:43] LABS: GLUCOSE,POINT OF CARE 155 MG/DL (70-110)
[2017-08-17 07:15] VITALS: BP 109/61
[2017-08-17] MEDS: VANCOMYCIN HCL 500 MG in DEXTROSE 5%-WATER 100 ML IV SCH (08:30)
[2017-08-17] MEDS: ASPIRIN 81 MG EC TABLET PEG SCH (08:30)
[2017-08-17] MEDS: HEPARIN SODIUM,PORCINE 5,000 UNITS/ML VIAL SQ SCH (08:30)
[2017-08-17 08:40] LABS: BASOPHILS # (AUTO) 0.04 K/uL (0.00-0.20); BASOPHILS % (AUTO) 0.7 % (0.0-2.0); EOSINOPHILS # (AUTO) 0.19 K/uL (0.00-0.70); EOSINOPHILS % (AUTO) 2.92 % (1.0-6.0); HEMATOCRIT 27.6 % (36-46); HEMOGLOBIN 8.9 g/dL (12.0-16.0); LYMPHOCYTES # (AUTO) 1.5 K/uL (1.0-4.8); LYMPHOCYTES % (AUTO) 22.4 % (22.0-44.0); MEAN CORPUSCULAR HEMOGLOBIN 32.7 pg (26.0-34.0); MEAN CORPUSCULAR HGB CONC 32.3 G/dL (31.0-37.0); MEAN CORPUSCULAR VOLUME 101 fL (80-100); MONOCYTES # (AUTO) 0.4 K/uL (0.1-1.0); MONOCYTES % (AUTO) 5.7 % (2.0-9.0); NEUTROPHILS # (AUTO) 4.5 K/uL (1.8-7.7); NEUTROPHILS % (AUTO) 68.3 % (40.0-70.0); PLATELET COUNT (AUTO) 100 K/uL (150-450); RED BLOOD CELL COUNT(AUTO) 2.72 MIL/uL (4.00-5.20); RED CELL DISTRIBUTION WIDTH 13.6 % (11.5-14.5); WHITE BLOOD COUNT (AUTO) 6.6 K/uL (4.5-11.0)
[2017-08-17 09:03] LABS: ANION GAP 8 mmol/L (8-16); CALCIUM, TOTAL 7.4 mg/dL (8.8-10.5); CARBON DIOXIDE 19 mmol/L (22-29); CHLORIDE 109 mmol/L (98-107); CREATININE 0.65 mg/dL (0.60-1.30); GLOMERULAR FILTR. RATE CALC > 60 mL/min (>60); POTASSIUM 3.8 mmol/L (3.5-5.1); SODIUM SERUM 136 mmol/L (136-145); UREA NITROGEN, BLOOD 26 mg/dL (7-18)
[2017-08-17 11:25] VITALS: BP 115/65
[2017-08-17 11:38] LABS: RBC MORPHOLOGY COMMENT ABNORMAL RBC MORPH
[2017-08-17] MEDS ORDERED: SODIUM CHLORIDE 0.45% 1,000 ML IV ONE (14:31)
[2017-08-17 15:17] VITALS: BP 122/68
[2017-08-17] MEDS ORDERED: LORA0.5T2 PO (17:46)
[2017-08-17] MEDS ORDERED: PHENL PEG (17:48)
[2017-08-17] MEDS ORDERED: LEVO500 PO (17:50)
[2017-08-17] MEDS ORDERED: INSLAN SQ (17:50)
[2017-08-17] MEDS ORDERED: ACET-2902 PO (17:52)
[2017-08-17] MEDS ORDERED: AUD NEB (17:53)
[2017-08-17] MEDS ORDERED: BISA10S PR (17:54)
[2017-08-17] MEDS ORDERED: INSREG SQ (17:55)
[2017-08-17] MEDS ORDERED: IPRNEB IH (17:55)
[2017-08-17] MEDS ORDERED: MOM30 PO (17:56)
[2017-08-18 03:27] LABS: GLUCOSE COMMENT 1 Received Meds; GLUCOSE,POINT OF CARE 189 MG/DL (70-110)
[2017-08-18 04:32] LABS: GLUCOSE,POINT OF CARE 121 MG/DL (70-110)
== END 2017-08-17 18:50 | DRG 871 ==
LOC: EMS 17:47 → ICU 20:02 → 5S 08-16 11:10
PROVIDERS: ADMIT Internal Medicine Geriatric Medicine; ATTEND Internal Medicine Geriatric Medicine
DX: A41.9 Sepsis, unspecified organism (principal); R65.21 Severe sepsis with septic shock; E43 Unspecified severe protein-calorie malnutrition; N17.9 Acute kidney failure, unspecified; D69.6 Thrombocytopenia, unspecified; E11.22 Type 2 diabetes mellitus with diabetic chronic kidney disease; G20 Parkinson's disease; I50.9 Heart failure, unspecified; I13.0 Hypertensive heart and chronic kidney disease with heart failure and stage 1 through stage 4 chronic kidney disease, or unspecified chronic kidney disease; N39.0 Urinary tract infection, site not specified; R64 Cachexia; E86.0 Dehydration; D64.9 Anemia, unspecified; H54.61 Unqualified visual loss, right eye, normal vision left eye; E78.5 Hyperlipidemia, unspecified; G30.9 Alzheimer's disease, unspecified; F02.80 Dementia in other diseases classified elsewhere, unspecified severity, without behavioral disturbance, psychotic disturbance, mood disturbance, and anxiety; N18.9 Chronic kidney disease, unspecified; F32.9 Major depressive disorder, single episode, unspecified; F41.9 Anxiety disorder, unspecified; E87.6 Hypokalemia; F01.50 Vascular dementia, unspecified severity, without behavioral disturbance, psychotic disturbance, mood disturbance, and anxiety; R13.10 Dysphagia, unspecified; R62.7 Adult failure to thrive; Z79.4 Long term (current) use of insulin; Z86.73 Personal history of transient ischemic attack (TIA), and cerebral infarction without residual deficits; Z79.82 Long term (current) use of aspirin; Z86.79 Personal history of other diseases of the circulatory system; Z93.1 Gastrostomy status; Z79.899 Other long term (current) drug therapy; Z68.23 Body mass index [BMI] 23.0-23.9, adult
CPT/HCPCS: 36556; 82306; 82607; 82746; 82962; 83036; 83605; 83735; 84145; 84439; 84443; 87040; 87081; 87086; 87804; 93306; 96365; 96366; 96368; 99291; J0131; J0692; J1644; J2543; J3370; J3490; J7030; J7050; J7060

== ENCOUNTER 2018-11-27 12:14 | Emergency (ER) | payer MEDICARE, OTHER ==
[~2018-11-27] VITALS: Ht 144.8 cm; Wt 61.4 kg
[~2018-11-27 12:14] MED LIST changes: +ACET-2902 PO; -ASPI81TA33 PEG; +ASPI81TA87 PEG; +AUD NEB; +BISA10S PR; +INSLAN SQ; +INSREG SQ; +IPRNEB IH; +LEVO500 PO; -LORA0.5T2 PEG; +LORA0.5T2 PO; +MOM30 PO; -SITA50 PEG; -TRAZ-144 PEG; +TRAZ-219 PEG
[2018-11-27 13:59] LABS: INR 0.9 (0.9-1.1); PROTHROMBIN TIME 9.9 SEC (9.4-11.6)
[2018-11-27 17:22] VITALS: BP 146/76
== END 2018-11-27 17:37 | disposition home or self-care (01) ==
LOC: EMS 12:16
DX: K94.23 Gastrostomy malfunction (principal); I11.0 Hypertensive heart disease with heart failure; I50.9 Heart failure, unspecified; F41.9 Anxiety disorder, unspecified; E78.00 Pure hypercholesterolemia, unspecified; Z86.73 Personal history of transient ischemic attack (TIA), and cerebral infarction without residual deficits; Z79.82 Long term (current) use of aspirin; Z79.4 Long term (current) use of insulin; Z79.899 Other long term (current) drug therapy
CPT/HCPCS: 36415; 49450; 74018; 85610; 99284; C1769